=== PATIENT | female | born 1955 | race African-American/Black ===

== ENCOUNTER 2017-05-26 05:56 | Inpatient (IN) ==
[2017-05-26] MEDS ORDERED: ALBUTEROL NEB SOLN 5 MG/ML 20 ML/BOTTLE CONT NEB STA (06:01)
[2017-05-26] MEDS ORDERED: ALBUTEROL 2.5 MG/3 ML NEB RESP TX PRN ×2 (07:14→15:13)
[2017-05-26] MEDS ORDERED: DEXTROSE 50% 25 GM/50 ML VIAL IV PRN ×2 (07:49→07:52)
[2017-05-26] MEDS ORDERED: GLUCAGON 1 MG VIAL IM PRN ×2 (07:49→07:52)
[2017-05-26] MEDS ORDERED: methylPREDNISolone SOD SUC 125 MG/2 ML VIAL IV SCH (08:00)
[2017-05-26 08:29] LABS: ABG HCO3 17.1 MMOL/L (20-26); ABG Oxygen Saturation 97.5 % (95-100); ABG PCO2 34.7 MM HG (35-48); ABG PH 7.292 (7.35-7.45); ABG TCO2 15.8 MMOL/L (23-27)
[2017-05-26 08:54] LABS: Basophils % 0.1 % (0.0-0.8); Eosinophils % 0.1 % (0.00-10.9); Hematocrit 25.8 VOL% (35.7-47.0); Immature Granulocytes % 0.8 %; Immature Granulocytes Absolute 0.12 #; Lymphocytes # 0.4 10*3/uL (1.4-4.0); Lymphocytes % 2.6 % (21.3-54.2); Mean Corpuscular Hemoglobin 29 PG (27-34); Mean Corpuscular Volume 92.5 FL (87-102); Mean Platelet Volume 12.9 FL (9.6-12.0); Monocytes # 0.1 10*3/uL (0.11-0.8); Monocytes % 0.7 % (1.7-12.7); Neutrophils # 14.3 10*3/uL (1.4-7.4); Neutrophils % 95.7 % (38.7-73.9); Platelet Count 219 T/CUMM (130-400); Red Blood Count 2.79 MC/CUMM (3.8-5.5); Red Cell Distribution Width 14.6 % (9.3-17.3); White Blood Count 14.9 T/CUMM (4-12)
[2017-05-26 09:14] LABS: Hypochromasia 1+; Lymphocytes 1 % (20-55); Microcytosis Slight; Segmented Neutrophils 98 % (50-85); Total Cells Counted 100
[2017-05-26 09:15] LABS: Platelet Estimate Normal
[2017-05-26 09:24] LABS: Alanine Aminotransferase 57 U/L (13-56); Alkaline Phosphatase 142 U/L (45-117); Aspartate Amino Transferase 41 U/L (0-37); Bilirubin,Total < 0.39 MG/DL (0.2-1.0); Blood Urea Nitrogen 63 MG/DL (7-18); Calcium 8.1 MG/DL (8.5-10.1); Glucose 460 MG/DL (74-106); Magnesium 2.9 MG/DL (1.8-2.4); Phosphorous 3.2 MG/DL (2.5-4.9); Potassium 4.1 MMOL/L (3.5-5.1); Sodium 136 MMOL/L (136-145); Total Protein 6.6 G/DL (6.4-8.3)
[2017-05-26] MEDS ORDERED: methylPREDNISolone SOD SUC 125 MG/2 ML VIAL ONE (10:27)
[2017-05-26] MEDS ORDERED: INSULIN REGULAR 100 UNIT/ML ONE ×2 (10:28→17:03)
[2017-05-26] MEDS: INSULIN REGULAR 100 UNIT/ML SUBCUT SCH ×4 (10:33→21:29)
[2017-05-26] MEDS ORDERED: ALBUTEROL 2.5 MG/3 ML NEB RESP TX ONE (10:45)
[2017-05-26] MEDS ORDERED: ACETAMINOPHEN 500 MG TABLET PO PRN (15:13)
[2017-05-26] MEDS ORDERED: oxyCODONE IR 5 MG TABLET PO PRN (15:13)
[2017-05-26] MEDS ORDERED: methylPREDNISolone SOD SUC 40 MG/1 ML VIAL ONE (17:01)
[2017-05-26] MEDS ORDERED: LEVOFLOXACIN INJ 100 ML IV ONE (17:01)
[2017-05-26] MEDS: FUROSEMIDE 40 MG TABLET PO SCH (17:18)
[2017-05-26] MEDS: methylPREDNISolone SOD SUC 125 MG/2 ML VIAL IV SCH ×2 (17:20→18:57)
[2017-05-26] MEDS ORDERED: LEVOFLOXACIN INJ 500 MG in PREMIX 1 EACH IV ONE (17:30)
[2017-05-26 17:45] LABS: Apearance,Urine CLOUDY (Clear); Bacteria,Urine Occasional /HPF (Few); Bilirubin,Urine Negative (Negative); Blood, Urine Moderate mg/dL (Negative); Glucose,Urine (UA) >=500 mg/dL (Negative); Ketones,Urine Negative (Negative); Mucus,Urine Occasional /LPF (Occasional); Nitrite,Urine Negative (Negative); Protein,Urine >=500 MG/DL; RBC,Urine 16 /HPF (0-4); Squamous Epithelial Cell,Urine Occasional /HPF (0-10); Urine Color Yellow (Yellow); Urine Specific Gravity 1.013 (1.001-1.035); Urine Urobilinogen < 2.0 EU/DL (0.2-1.0); WBC,Urine 23 /HPF (0-6)
[2017-05-26 18:08] LABS: Lactic Acid 3.9 MMOL/L (0.4-2.0)
[2017-05-26] MEDS: ALBUTEROL 2.5 MG/3 ML NEB RESP TX SCH ×2 (19:18→23:56)
[2017-05-26] MEDS ORDERED: INSULIN ASPART PROTAMINE/ASPART 70/30 100 UNIT/ML SUBCUT SCH (21:00)
[2017-05-26] MEDS: clonazePAM 0.5 MG TABLET PO SCH (21:22)
[2017-05-26] MEDS: SERTRALINE 50 MG TABLET PO SCH (21:22)
[2017-05-26] MEDS: MONTELUKAST 10 MG TABLET PO SCH (21:23)
[2017-05-27] MEDS: methylPREDNISolone SOD SUC 125 MG/2 ML VIAL IV SCH ×3 (01:21→14:35)
[2017-05-27] MEDS: ALBUTEROL 2.5 MG/3 ML NEB RESP TX SCH ×5 (03:13→20:20)
[2017-05-27 07:09] LABS: Albumin 3.1 G/DL (3.4-5.0); Bilirubin,Total 0.4 MG/DL (0.2-1.0); Calcium 9.1 MG/DL (8.5-10.1); Magnesium 3.2 MG/DL (1.8-2.4); Osmolality,Calculated 299.1 MOS/KG (273-304); Potassium 4.7 MMOL/L (3.5-5.1); Total Protein 6.8 G/DL (6.4-8.3)
[2017-05-27] MEDS: INSULIN REGULAR 100 UNIT/ML SUBCUT SCH ×4 (09:04→21:55)
[2017-05-27] MEDS: INSULIN ASPART PROTAMINE/ASPART 70/30 100 UNIT/ML SUBCUT SCH ×2 (09:04→17:26)
[2017-05-27] MEDS: SERTRALINE 50 MG TABLET PO SCH ×2 (09:05→20:35)
[2017-05-27] MEDS: ASPIRIN EC 81 MG TABLET PO SCH (09:05)
[2017-05-27] MEDS: FUROSEMIDE 40 MG TABLET PO SCH ×2 (09:05→15:02)
[2017-05-27] MEDS: amLODIPine 10 MG TABLET PO SCH (09:06)
[2017-05-27] MEDS: ATORVASTATIN 40 MG TABLET PO SCH (09:06)
[2017-05-27] MEDS: clonazePAM 0.5 MG TABLET PO SCH ×2 (09:06→20:34)
[2017-05-27] MEDS: COLLAGENASE OINT 30 GM TUBE TOP SCH (14:35)
[2017-05-27] MEDS ORDERED: PHENOL 1.4% THROAT SPRAY 177 ML BOTTLE PO PRN (17:58)
[2017-05-27] MEDS: SODIUM BICARBONATE 650 MG TABLET PO SCH (20:34)
[2017-05-27] MEDS: MONTELUKAST 10 MG TABLET PO SCH (20:34)
[2017-05-27] MEDS: methylPREDNISolone SOD SUC 40 MG/1 ML VIAL IV SCH (21:21)
[2017-05-28] MEDS: ALBUTEROL 2.5 MG/3 ML NEB RESP TX SCH ×7 (00:05→23:57)
[2017-05-28] MEDS ORDERED: ALBUTEROL 2.5 MG/3 ML NEB RESP TX PRN (06:04)
[2017-05-28 06:28] LABS: Basophils % 0.1 % (0.0-0.8); Eosinophils % 0.1 % (0.00-10.9); Hematocrit 23.6 VOL% (35.7-47.0); Hemoglobin 7.5 GM/DL (12.0-16.0); Immature Granulocytes % 5.3 %; Immature Granulocytes Absolute 1.44 #; Lymphocytes # 0.7 10*3/uL (1.4-4.0); Lymphocytes % 2.5 % (21.3-54.2); Mean Corpuscular HGB Conc 31.8 GM/DL (32-36); Mean Corpuscular Hemoglobin 29 PG (27-34); Mean Corpuscular Volume 89.7 FL (87-102); Mean Platelet Volume 12.6 FL (9.6-12.0); Monocytes # 0.9 10*3/uL (0.11-0.8); Monocytes % 3.4 % (1.7-12.7); Neutrophils % 88.6 % (38.7-73.9); Platelet Count 248 T/CUMM (130-400); Red Blood Count 2.63 MC/CUMM (3.8-5.5); Red Cell Distribution Width 15.3 % (9.3-17.3); White Blood Count 27.1 T/CUMM (4-12)
[2017-05-28 06:55] LABS: Giant Platelets Few; Hypochromasia 1+; Lymphocytes 2 % (20-55); Microcytosis Slight; Ovalocytes Slight; Platelet Estimate Adequate; Segmented Neutrophils 91 % (50-85); Total Cells Counted 100
[2017-05-28] MEDS: clonazePAM 0.5 MG TABLET PO SCH ×2 (09:45→21:34)
[2017-05-28] MEDS: methylPREDNISolone SOD SUC 40 MG/1 ML VIAL IV SCH (09:47)
[2017-05-28] MEDS: INSULIN ASPART PROTAMINE/ASPART 70/30 100 UNIT/ML SUBCUT SCH ×2 (09:48→17:04)
[2017-05-28] MEDS: FUROSEMIDE 40 MG TABLET PO SCH ×2 (09:48→15:47)
[2017-05-28] MEDS ORDERED: FUROSEMIDE 40 MG/4 ML VIAL ONE (09:50)
[2017-05-28] MEDS: ASPIRIN EC 81 MG TABLET PO SCH (09:54)
[2017-05-28] MEDS: ATORVASTATIN 40 MG TABLET PO SCH (09:54)
[2017-05-28] MEDS: SODIUM BICARBONATE 650 MG TABLET PO SCH ×2 (09:54→21:34)
[2017-05-28] MEDS: amLODIPine 10 MG TABLET PO SCH (09:54)
[2017-05-28] MEDS: predniSONE 20 MG TABLET PO SCH (09:55)
[2017-05-28] MEDS: SERTRALINE 50 MG TABLET PO SCH ×2 (09:55→21:34)
[2017-05-28] MEDS: COLLAGENASE OINT 30 GM TUBE TOP SCH (09:55)
[2017-05-28] MEDS: INSULIN REGULAR 100 UNIT/ML SUBCUT SCH ×3 (09:56→17:04)
[2017-05-28] MEDS ORDERED: FUROSEMIDE 40 MG/4 ML VIAL IV ONE (10:11)
[2017-05-28] MEDS ORDERED: FUROSEMIDE 40 MG/4 ML VIAL IM ONE (10:11)
[2017-05-28] MEDS: MONTELUKAST 10 MG TABLET PO SCH (21:34)
[2017-05-28] MEDS: LEVOFLOXACIN INJ 250 MG in PREMIX 1 EACH IV SCH (21:35)
[2017-05-29] MEDS: INSULIN REGULAR 100 UNIT/ML SUBCUT SCH ×5 (00:19→21:55)
[2017-05-29] MEDS: ALBUTEROL 2.5 MG/3 ML NEB RESP TX SCH ×4 (03:37→20:20)
[2017-05-29 06:46] LABS: Basophils # 0.1 10*3/uL (0.0-0.2); Basophils % 0.2 % (0.0-0.8); Hematocrit 24.5 VOL% (35.7-47.0); Hemoglobin 7.9 GM/DL (12.0-16.0); Immature Granulocytes % 7.2 %; Lymphocytes # 1.3 10*3/uL (1.4-4.0); Lymphocytes % 4.5 % (21.3-54.2); Mean Corpuscular HGB Conc 32.2 GM/DL (32-36); Mean Corpuscular Hemoglobin 29 PG (27-34); Mean Corpuscular Volume 89.4 FL (87-102); Mean Platelet Volume 12.4 FL (9.6-12.0); Monocytes # 2.1 10*3/uL (0.11-0.8); Monocytes % 7.7 % (1.7-12.7); Neutrophils # 22.3 10*3/uL (1.4-7.4); Neutrophils % 80.4 % (38.7-73.9); Platelet Count 254 T/CUMM (130-400); Red Blood Count 2.74 MC/CUMM (3.8-5.5); Red Cell Distribution Width 15.5 % (9.3-17.3); White Blood Count 27.8 T/CUMM (4-12)
[2017-05-29 07:18] LABS: Osmolality,Calculated 307.3 MOS/KG (273-304); Potassium 4.1 MMOL/L (3.5-5.1)
[2017-05-29 07:21] LABS: Albumin 3.2 G/DL (3.4-5.0); Bilirubin,Total 0.6 MG/DL (0.2-1.0); Calcium 8.9 MG/DL (8.5-10.1); Osmolality,Calculated 308.1 MOS/KG (273-304); Phosphorous 3.4 MG/DL (2.5-4.9); Potassium 4.2 MMOL/L (3.5-5.1); Total Protein 6.5 G/DL (6.4-8.3)
[2017-05-29 07:23] LABS: Hypochromasia 1+; Lymphocytes 11 % (20-55); Myelocytes 5 %; Platelet Estimate Adequate; Polychromasia Slight; Segmented Neutrophils 79 % (50-85); Total Cells Counted 100
[2017-05-29] MEDS: INSULIN ASPART PROTAMINE/ASPART 70/30 100 UNIT/ML SUBCUT SCH ×2 (07:35→18:57)
[2017-05-29] MEDS ORDERED: CLINDAMYCIN INJ 900 MG in PREMIX 1 EACH IV ONE (10:00)
[2017-05-29] MEDS: clonazePAM 0.5 MG TABLET PO SCH ×2 (11:59→20:49)
[2017-05-29] MEDS: ASPIRIN EC 81 MG TABLET PO SCH (11:59)
[2017-05-29] MEDS: FUROSEMIDE 40 MG TABLET PO SCH ×2 (11:59→16:39)
[2017-05-29] MEDS: SODIUM BICARBONATE 650 MG TABLET PO SCH ×2 (12:00→20:49)
[2017-05-29] MEDS: predniSONE 20 MG TABLET PO SCH (12:00)
[2017-05-29] MEDS: ATORVASTATIN 40 MG TABLET PO SCH (12:00)
[2017-05-29] MEDS: SERTRALINE 50 MG TABLET PO SCH ×2 (12:00→20:49)
[2017-05-29] MEDS: COLLAGENASE OINT 30 GM TUBE TOP SCH (12:00)
[2017-05-29] MEDS: amLODIPine 10 MG TABLET PO SCH (12:46)
[2017-05-29 13:02] LABS: Hepatitis A Ab IgM Quant 0.14 Index; Hepatitis A Ab IgM Result Negative (Negative); Hepatitis B Core IgM Result Negative (Negative); Hepatitis B Surface Ag Quant 0.26 Index; Hepatitis B Surface Ag Result Negative (Negative); Hepatitis C Virus Ab Quant < 0.02 Index; Hepatitis C Virus Ab Result Negative (Negative)
[2017-05-29] MEDS ORDERED: TISSUE ADHESIVE 1 EACH APPLICATOR TOP ONE (14:52)
[2017-05-29] MEDS ORDERED: HEPARIN 5,000 UNIT/1 ML VIAL ONE (14:52)
[2017-05-29] MEDS ORDERED: PROPOFOL 200 MG/20 ML VIAL IV ONE (16:36)
[2017-05-29] MEDS ORDERED: MIDAZOLAM 2 MG/2 ML VIAL ONE (16:37)
[2017-05-29] MEDS ORDERED: fentaNYL 100 MCG/2 ML VIAL ONE (16:37)
[2017-05-29] MEDS ORDERED: ALBUTEROL 2.5 MG/3 ML NEB RESP TX ONE (19:47)
[2017-05-29] MEDS: MONTELUKAST 10 MG TABLET PO SCH (20:49)
[2017-05-30] MEDS: ALBUTEROL 2.5 MG/3 ML NEB RESP TX SCH ×8 (00:01→23:23)
[2017-05-30 06:03] LABS: Basophils % 0.2 % (0.0-0.8); Eosinophils # 0.3 10*3/uL (0.0-0.87); Eosinophils % 1.8 % (0.00-10.9); Hemoglobin 7.6 GM/DL (12.0-16.0); Immature Granulocytes Absolute 0.97 #; Lymphocytes # 2.1 10*3/uL (1.4-4.0); Lymphocytes % 12.7 % (21.3-54.2); Mean Corpuscular HGB Conc 31.7 GM/DL (32-36); Mean Corpuscular Hemoglobin 29 PG (27-34); Mean Corpuscular Volume 90.6 FL (87-102); Mean Platelet Volume 11.5 FL (9.6-12.0); Monocytes # 1.6 10*3/uL (0.11-0.8); Monocytes % 9.6 % (1.7-12.7); NRBC # 0.02 10*3/uL; Neutrophils # 11.2 10*3/uL (1.4-7.4); Neutrophils % 69.7 % (38.7-73.9); Platelet Count 242 T/CUMM (130-400); Red Blood Count 2.65 MC/CUMM (3.8-5.5); Red Cell Distribution Width 15.8 % (9.3-17.3); White Blood Count 16.1 T/CUMM (4-12)
[2017-05-30 06:34] LABS: Albumin 2.8 G/DL (3.4-5.0); Bilirubin,Total 0.8 MG/DL (0.2-1.0); Magnesium 2.7 MG/DL (1.8-2.4); Phosphorous 3.6 MG/DL (2.5-4.9); Potassium 4.7 MMOL/L (3.5-5.1)
[2017-05-30 06:37] LABS: Hypochromasia 1+; Lymphocytes 18 % (20-55); Metamyelocytes 1 %; Microcytosis 1+; Myelocytes 1 %; Segmented Neutrophils 75 % (50-85); Total Cells Counted 100
[2017-05-30 06:38] LABS: Platelet Estimate Normal
[2017-05-30] MEDS ORDERED: HEPARIN 10,000 UNIT/10 ML VIAL IV SCH (07:30)
[2017-05-30] MEDS: FUROSEMIDE 40 MG TABLET PO SCH ×2 (09:21→15:47)
[2017-05-30] MEDS: ATORVASTATIN 40 MG TABLET PO SCH (09:21)
[2017-05-30] MEDS: ASPIRIN EC 81 MG TABLET PO SCH (09:21)
[2017-05-30] MEDS: clonazePAM 0.5 MG TABLET PO SCH ×2 (09:21→21:17)
[2017-05-30] MEDS: amLODIPine 10 MG TABLET PO SCH (09:22)
[2017-05-30] MEDS: predniSONE 20 MG TABLET PO SCH (09:22)
[2017-05-30] MEDS: SERTRALINE 50 MG TABLET PO SCH ×2 (09:22→21:17)
[2017-05-30] MEDS: SODIUM BICARBONATE 650 MG TABLET PO SCH ×2 (09:22→21:17)
[2017-05-30] MEDS: INSULIN REGULAR 100 UNIT/ML SUBCUT SCH ×4 (09:25→21:17)
[2017-05-30] MEDS ORDERED: EPOETIN ALFA 10,000 UNIT/1 ML VIAL IV SCH (12:30)
[2017-05-30] MEDS: COLLAGENASE OINT 30 GM TUBE TOP SCH (15:43)
[2017-05-30] MEDS: MONTELUKAST 10 MG TABLET PO SCH (21:17)
[2017-05-30] MEDS: LEVOFLOXACIN INJ 250 MG in PREMIX 1 EACH IV SCH (21:17)
[2017-05-31] MEDS: ALBUTEROL 2.5 MG/3 ML NEB RESP TX SCH ×6 (02:23→23:01)
[2017-05-31] MEDS: COLLAGENASE OINT 30 GM TUBE TOP SCH (07:55)
[2017-05-31] MEDS: FUROSEMIDE 40 MG TABLET PO SCH ×2 (08:08→16:07)
[2017-05-31] MEDS: INSULIN REGULAR 100 UNIT/ML SUBCUT SCH ×4 (08:21→22:09)
[2017-05-31] MEDS: SODIUM BICARBONATE 650 MG TABLET PO SCH ×2 (08:22→22:12)
[2017-05-31] MEDS: amLODIPine 10 MG TABLET PO SCH (08:22)
[2017-05-31] MEDS: clonazePAM 0.5 MG TABLET PO SCH ×2 (08:22→22:09)
[2017-05-31] MEDS: predniSONE 20 MG TABLET PO SCH (08:23)
[2017-05-31] MEDS: LISINOPRIL 10 MG TABLET PO SCH (08:23)
[2017-05-31] MEDS: SERTRALINE 50 MG TABLET PO SCH ×2 (08:23→22:12)
[2017-05-31] MEDS: ATORVASTATIN 40 MG TABLET PO SCH (08:23)
[2017-05-31] MEDS: ASPIRIN EC 81 MG TABLET PO SCH (08:23)
[2017-05-31] MEDS: MONTELUKAST 10 MG TABLET PO SCH (22:09)
[2017-06-01] MEDS: ALBUTEROL 2.5 MG/3 ML NEB RESP TX SCH ×5 (02:35→19:59)
[2017-06-01] MEDS: COLLAGENASE OINT 30 GM TUBE TOP SCH (07:20)
[2017-06-01] MEDS: FUROSEMIDE 40 MG TABLET PO SCH ×2 (08:40→16:25)
[2017-06-01] MEDS: clonazePAM 0.5 MG TABLET PO SCH ×2 (08:41→21:41)
[2017-06-01] MEDS: SODIUM BICARBONATE 650 MG TABLET PO SCH ×2 (08:41→21:40)
[2017-06-01] MEDS: predniSONE 20 MG TABLET PO SCH (08:41)
[2017-06-01] MEDS: ATORVASTATIN 40 MG TABLET PO SCH (08:41)
[2017-06-01] MEDS: SERTRALINE 50 MG TABLET PO SCH ×2 (08:41→21:41)
[2017-06-01] MEDS: ASPIRIN EC 81 MG TABLET PO SCH (08:41)
[2017-06-01] MEDS: LISINOPRIL 10 MG TABLET PO SCH (08:41)
[2017-06-01] MEDS: amLODIPine 10 MG TABLET PO SCH (08:42)
[2017-06-01] MEDS: INSULIN NPH/REGULAR 70/30 100 UNIT/ML SUBCUT SCH ×2 (08:55→16:58)
[2017-06-01] MEDS: INSULIN REGULAR 100 UNIT/ML SUBCUT SCH ×4 (08:55→21:41)
[2017-06-01] MEDS: MONTELUKAST 10 MG TABLET PO SCH (21:41)
[2017-06-01] MEDS: LEVOFLOXACIN INJ 250 MG in PREMIX 1 EACH IV SCH (21:45)
[2017-06-02] MEDS: ALBUTEROL 2.5 MG/3 ML NEB RESP TX SCH ×4 (01:08→11:19)
[2017-06-02] MEDS: INSULIN NPH/REGULAR 70/30 100 UNIT/ML SUBCUT SCH ×2 (08:09→17:51)
[2017-06-02] MEDS: SODIUM BICARBONATE 650 MG TABLET PO SCH (08:09)
[2017-06-02] MEDS: ATORVASTATIN 40 MG TABLET PO SCH (08:10)
[2017-06-02] MEDS: clonazePAM 0.5 MG TABLET PO SCH (08:10)
[2017-06-02] MEDS: predniSONE 20 MG TABLET PO SCH (08:10)
[2017-06-02] MEDS: amLODIPine 10 MG TABLET PO SCH (08:10)
[2017-06-02] MEDS: SERTRALINE 50 MG TABLET PO SCH (08:10)
[2017-06-02] MEDS: ASPIRIN EC 81 MG TABLET PO SCH (08:10)
[2017-06-02] MEDS: FUROSEMIDE 40 MG TABLET PO SCH ×2 (08:11→16:25)
[2017-06-02] MEDS: LISINOPRIL 10 MG TABLET PO SCH (08:11)
[2017-06-02] MEDS: COLLAGENASE OINT 30 GM TUBE TOP SCH (08:14)
[2017-06-02 09:09] LABS: Calcium 8.3 MG/DL (8.5-10.1); Osmolality,Calculated 298.1 MOS/KG (273-304); Potassium 4.1 MMOL/L (3.5-5.1)
[2017-06-02 12:22] VITALS: BP 148/68
[2017-06-02] MEDS: INSULIN REGULAR 100 UNIT/ML SUBCUT SCH ×3 (12:40→17:51)
== END 2017-06-02 16:20 | disposition home or self-care (01) | DRG 871 ==
LOC: EDBD → EDUNIT# → N.ED 05:56 → SUATTDRO 06:46 → N.EDINP 06:46 → N.2E 18:47
PROVIDERS: ADMIT Internal Medicine; ATTEND Internal Medicine

== ENCOUNTER 2017-07-23 12:40 | Inpatient (IN) ==
[2017-07-23] MEDS ORDERED: ONDANSETRON 4 MG/2 ML VIAL IV PRN (15:30)
[2017-07-23] MEDS ORDERED: DEXTROSE 50% 25 GM/50 ML VIAL IV PRN (15:32)
[2017-07-23] MEDS ORDERED: GLUCAGON 1 MG VIAL IM PRN (15:32)
[2017-07-23 16:14] LABS: Basophils % 0.2 % (0.0-0.8); Eosinophils # 0.7 10*3/uL (0.0-0.87); Eosinophils % 7.6 % (0.00-10.9); Hematocrit 28.1 VOL% (35.7-47.0); Immature Granulocytes % 0.3 %; Immature Granulocytes Absolute 0.03 #; Lymphocytes # 1.6 10*3/uL (1.4-4.0); Lymphocytes % 17.8 % (21.3-54.2); Mean Corpuscular Hemoglobin 29 PG (27-34); Mean Corpuscular Volume 91.8 FL (87-102); Mean Platelet Volume 12.4 FL (9.6-12.0); Monocytes # 0.6 10*3/uL (0.11-0.8); Monocytes % 6.8 % (1.7-12.7); Neutrophils # 5.9 10*3/uL (1.4-7.4); Neutrophils % 67.3 % (38.7-73.9); Platelet Count 203 T/CUMM (130-400); Red Blood Count 3.06 MC/CUMM (3.8-5.5); White Blood Count 8.8 T/CUMM (4-12)
[2017-07-23 16:51] LABS: Osmolality,Calculated 277.7 MOS/KG (273-304); Potassium 3.9 MMOL/L (3.5-5.1)
[2017-07-23] MEDS: INSULIN REGULAR 100 UNIT/ML SUBCUT SCH (18:04)
[2017-07-23] MEDS: amLODIPine 10 MG TABLET PO SCH (21:33)
[2017-07-23] MEDS: PANTOPRAZOLE 40 MG VIAL IV SCH (21:38)
[2017-07-24] MEDS: INSULIN REGULAR 100 UNIT/ML SUBCUT SCH ×3 (01:41→12:07)
[2017-07-24] MEDS ORDERED: LINACLOTIDE 145 MCG CAPSULE PO SCH (07:30)
[2017-07-24] MEDS ORDERED: PROPOFOL 200 MG/20 ML VIAL IV ONE (09:00)
[2017-07-24] MEDS ORDERED: ISOSORBIDE MONONITRATE 60 MG TABLET PO SCH (09:00)
[2017-07-24] MEDS ORDERED: PANTOPRAZOLE 40 MG TABLET PO SCH ×2 (09:00→10:00)
[2017-07-24] MEDS ORDERED: LIDOCAINE 100 MG/5 ML SYRINGE ONE (09:00)
[2017-07-24] MEDS: PANTOPRAZOLE 40 MG VIAL IV SCH (09:28)
[2017-07-24] MEDS: SODIUM CHLORIDE 0.9% 1,000 ML IV SCH ×2 (10:06→10:43)
[2017-07-24] MEDS: amLODIPine 10 MG TABLET PO SCH (10:07)
[2017-07-24 10:46] LABS: Osmolality,Calculated 284.3 MOS/KG (273-304); Potassium 3.8 MMOL/L (3.5-5.1)
[2017-07-24 12:24] VITALS: BP 128/68
[2017-07-24] MEDS ORDERED: ACETAMINOPHEN 500 MG TABLET PO PRN (14:04)
== END 2017-07-24 17:42 | disposition home or self-care (01) | DRG 377 ==
LOC: N.2E 13:54 → SUATTDRO 13:54
PROVIDERS: ADMIT Internal Medicine

== ENCOUNTER 2017-08-13 03:27 | Inpatient (IN) ==
[2017-08-13] MEDS ORDERED: oxyCODONE IR 5 MG TABLET PO PRN (06:12)
[2017-08-13] MEDS ORDERED: ALBUTEROL 2.5 MG/3 ML NEB RESP TX PRN ×2 (06:12)
[2017-08-13] MEDS ORDERED: DEXTROSE 50% 25 GM/50 ML VIAL IV PRN (06:13)
[2017-08-13] MEDS ORDERED: GLUCAGON 1 MG VIAL IM PRN (06:13)
[2017-08-13] MEDS: ACETAMINOPHEN 325 MG TABLET PO PRN (07:14)
[2017-08-13] MEDS: INSULIN REGULAR 100 UNIT/ML SUBCUT SCH ×4 (08:00→20:59)
[2017-08-13 08:07] LABS: Basophils % 0.2 % (0.0-0.8); Eosinophils % 0.2 % (0.00-10.9); Hematocrit 24.4 VOL% (35.7-47.0); Immature Granulocytes % 0.8 %; Immature Granulocytes Absolute 0.15 #; Lymphocytes # 0.3 10*3/uL (1.4-4.0); Lymphocytes % 1.3 % (21.3-54.2); Mean Corpuscular HGB Conc 32.4 GM/DL (32-36); Mean Corpuscular Hemoglobin 30 PG (27-34); Mean Corpuscular Volume 91.7 FL (87-102); Mean Platelet Volume 11.3 FL (9.6-12.0); Monocytes # 0.5 10*3/uL (0.11-0.8); Monocytes % 2.6 % (1.7-12.7); Neutrophils # 17.9 10*3/uL (1.4-7.4); Neutrophils % 94.9 % (38.7-73.9); Platelet Count 234 T/CUMM (130-400); Red Blood Count 2.66 MC/CUMM (3.8-5.5); Red Cell Distribution Width 14.6 % (9.3-17.3); White Blood Count 18.9 T/CUMM (4-12)
[2017-08-13] MEDS ORDERED: METOPROLOL TARTRATE 5 MG/5 ML VIAL IV ONE (08:14)
[2017-08-13 08:15] LABS: Hemoglobin 7.9 GM/DL (12.0-16.0)
[2017-08-13 08:26] LABS: Band Neutrophils 6 % (0-10); Calcium 8.9 MG/DL (8.5-10.1); Giant Platelets Few; Hypochromasia 1+; Lymphocytes 1 % (20-55); Osmolality,Calculated 291.8 MOS/KG (273-304); Ovalocytes Slight; Platelet Estimate Adequate; Potassium 4.3 MMOL/L (3.5-5.1); Segmented Neutrophils 92 % (50-85); Total Cells Counted 100
[2017-08-13 08:27] LABS: Microcytosis Slight
[2017-08-13] MEDS ORDERED: SODIUM CHLORIDE 0.9% 500 ML IV ONE (08:33)
[2017-08-13] MEDS ORDERED: VANCOMYCIN INJ 1,000 MG in SODIUM CHLORIDE 0.9% 250 ML IV PRN (09:06)
[2017-08-13] MEDS ORDERED: SODIUM CHLORIDE 0.9% 1,000 ML IV PRN (09:09)
[2017-08-13 09:17] LABS: Apearance,Urine CLOUDY (Clear); Bacteria,Urine Occasional /HPF (Few); Bilirubin,Urine Negative (Negative); Blood, Urine Moderate mg/dL (Negative); Glucose,Urine (UA) Negative (Negative); Ketones,Urine Negative (Negative); Mucus,Urine Occasional /LPF (Occasional); Nitrite,Urine Negative (Negative); Protein,Urine 100 MG/DL; RBC,Urine 15 /HPF (0-4); Squamous Epithelial Cell,Urine Occasional /HPF (0-10); Urine Color Straw (Yellow); Urine Specific Gravity 1.008 (1.001-1.035); Urine Urobilinogen < 2.0 EU/DL (0.2-1.0); WBC,Urine 6 /HPF (0-6)
[2017-08-13] MEDS ORDERED: VANCOMYCIN INJ 2,000 MG in SODIUM CHLORIDE 0.9% 500 ML IV ONE (09:30)
[2017-08-13] MEDS: amLODIPine 10 MG TABLET PO SCH ×2 (10:00→21:11)
[2017-08-13] MEDS: ISOSORBIDE MONONITRATE 60 MG TABLET PO SCH (10:00)
[2017-08-13] MEDS: PANTOPRAZOLE 40 MG TABLET PO SCH (10:00)
[2017-08-13] MEDS: PIPERACILLIN/TAZOBACTAM 3,375 MG in SODIUM CHLORIDE 0.9% 100 ML IV SCH ×2 (10:00→21:11)
[2017-08-13] MEDS: ONDANSETRON 4 MG/2 ML VIAL IV PRN ×2 (10:54→17:40)
[2017-08-13] MEDS: SODIUM BICARBONATE 650 MG TABLET PO SCH ×2 (15:08→21:11)
[2017-08-14] MEDS: ACETAMINOPHEN 325 MG TABLET PO PRN ×3 (04:34→17:36)
[2017-08-14] MEDS ORDERED: METOPROLOL TARTRATE 5 MG/5 ML VIAL IV ONE ×2 (05:28→06:00)
[2017-08-14 06:40] LABS: Basophils # 0.1 10*3/uL (0.0-0.2); Basophils % 0.2 % (0.0-0.8); Eosinophils # 0.3 10*3/uL (0.0-0.87); Eosinophils % 1.1 % (0.00-10.9); Hematocrit 24.8 VOL% (35.7-47.0); Hemoglobin 7.8 GM/DL (12.0-16.0); Immature Granulocytes Absolute 0.21 #; Lymphocytes # 0.6 10*3/uL (1.4-4.0); Lymphocytes % 2.9 % (21.3-54.2); Mean Corpuscular HGB Conc 31.5 GM/DL (32-36); Mean Corpuscular Hemoglobin 29 PG (27-34); Mean Corpuscular Volume 91.9 FL (87-102); Mean Platelet Volume 11.6 FL (9.6-12.0); Monocytes # 0.8 10*3/uL (0.11-0.8); Monocytes % 3.8 % (1.7-12.7); Neutrophils # 19.9 10*3/uL (1.4-7.4); Platelet Count 195 T/CUMM (130-400); White Blood Count 21.9 T/CUMM (4-12)
[2017-08-14 07:02] LABS: Band Neutrophils 5 % (0-10); Eosinophils 1 % (0-10); Hypochromasia 1+; Lymphocytes 1 % (20-55); Microcytosis 1+; Platelet Estimate Adequate; Segmented Neutrophils 92 % (50-85); Total Cells Counted 100
[2017-08-14 07:28] LABS: Albumin 2.7 G/DL (3.4-5.0); Bilirubin,Total 0.6 MG/DL (0.2-1.0); Calcium 8.3 MG/DL (8.5-10.1); Potassium 4.9 MMOL/L (3.5-5.1); Total Protein 6.1 G/DL (6.4-8.3)
[2017-08-14] MEDS: INSULIN REGULAR 100 UNIT/ML SUBCUT SCH ×4 (07:50→20:48)
[2017-08-14] MEDS ORDERED: VANCOMYCIN INJ 2,000 MG in SODIUM CHLORIDE 0.9% 500 ML IV ONE (09:30)
[2017-08-14] MEDS: SODIUM BICARBONATE 650 MG TABLET PO SCH ×3 (09:45→20:55)
[2017-08-14] MEDS: FUROSEMIDE 80 MG TABLET PO SCH (09:46)
[2017-08-14] MEDS: amLODIPine 10 MG TABLET PO SCH ×2 (09:46→20:55)
[2017-08-14] MEDS: PIPERACILLIN/TAZOBACTAM 3,375 MG in SODIUM CHLORIDE 0.9% 100 ML IV SCH (09:46)
[2017-08-14] MEDS: ISOSORBIDE MONONITRATE 60 MG TABLET PO SCH (09:46)
[2017-08-14] MEDS: PANTOPRAZOLE 40 MG TABLET PO SCH (09:46)
[2017-08-14] MEDS ORDERED: SODIUM CHLORIDE 0.9% 1,000 ML IV PRN (10:24)
[2017-08-14] MEDS ORDERED: HEPARIN 10,000 UNIT/10 ML VIAL IV PRN (17:25)
[2017-08-14 19:01] LABS: Hepatitis A Ab IgM Quant 0.07 Index; Hepatitis A Ab IgM Result Negative (Negative); Hepatitis B Core IgM Quant 0.16 Index; Hepatitis B Core IgM Result Negative (Negative); Hepatitis B Surface Ag Quant < 0.10 Index; Hepatitis B Surface Ag Result Negative (Negative); Hepatitis C Virus Ab Quant 0.07 Index; Hepatitis C Virus Ab Result Negative (Negative)
[2017-08-14] MEDS: METOPROLOL TARTRATE 25 MG TABLET PO SCH (20:55)
[2017-08-14] MEDS: ONDANSETRON 4 MG/2 ML VIAL IV PRN (22:10)
[2017-08-15] MEDS: ACETAMINOPHEN 325 MG TABLET PO PRN (02:13)
[2017-08-15 06:29] LABS: Basophils % 0.2 % (0.0-0.8); Eosinophils # 0.6 10*3/uL (0.0-0.87); Eosinophils % 3.3 % (0.00-10.9); Hematocrit 26.8 VOL% (35.7-47.0); Hemoglobin 8.9 GM/DL (12.0-16.0); Immature Granulocytes % 0.8 %; Immature Granulocytes Absolute 0.13 #; Lymphocytes # 1.4 10*3/uL (1.4-4.0); Lymphocytes % 8.2 % (21.3-54.2); Mean Corpuscular HGB Conc 33.2 GM/DL (32-36); Mean Corpuscular Hemoglobin 30 PG (27-34); Mean Corpuscular Volume 88.7 FL (87-102); Mean Platelet Volume 12.1 FL (9.6-12.0); Monocytes # 1.1 10*3/uL (0.11-0.8); Monocytes % 6.5 % (1.7-12.7); Neutrophils # 13.6 10*3/uL (1.4-7.4); Platelet Count 182 T/CUMM (130-400); Red Blood Count 3.02 MC/CUMM (3.8-5.5); White Blood Count 16.7 T/CUMM (4-12)
[2017-08-15 06:56] LABS: Calcium 8.4 MG/DL (8.5-10.1); Osmolality,Calculated 280.4 MOS/KG (273-304); Potassium 3.7 MMOL/L (3.5-5.1)
[2017-08-15] MEDS: INSULIN REGULAR 100 UNIT/ML SUBCUT SCH ×4 (07:33→20:42)
[2017-08-15] MEDS: ISOSORBIDE MONONITRATE 60 MG TABLET PO SCH (08:52)
[2017-08-15] MEDS: METOPROLOL TARTRATE 25 MG TABLET PO SCH ×2 (08:52→20:37)
[2017-08-15] MEDS: PANTOPRAZOLE 40 MG TABLET PO SCH (08:52)
[2017-08-15] MEDS: amLODIPine 10 MG TABLET PO SCH ×2 (08:52→20:37)
[2017-08-15] MEDS: FUROSEMIDE 80 MG TABLET PO SCH (08:52)
[2017-08-15] MEDS: SODIUM BICARBONATE 650 MG TABLET PO SCH ×3 (08:57→20:37)
[2017-08-15] MEDS: ZINC OXIDE PASTE 113 GM TUBE TOP PRN (09:00)
[2017-08-15] MEDS ORDERED: VANCOMYCIN INJ 1,000 MG in SODIUM CHLORIDE 0.9% 250 ML IV PRN (11:00)
[2017-08-15] MEDS ORDERED: VANCOMYCIN INJ 1,000 MG in SODIUM CHLORIDE 0.9% 250 ML IV ONE (12:00)
[2017-08-15] MEDS ORDERED: fentaNYL 100 MCG/2 ML VIAL ONE (12:06)
[2017-08-15] MEDS ORDERED: PROPOFOL 200 MG/20 ML VIAL IV ONE (12:06)
[2017-08-16 05:19] LABS: Basophils % 0.3 % (0.0-0.8); Eosinophils # 0.5 10*3/uL (0.0-0.87); Eosinophils % 4.2 % (0.00-10.9); Hematocrit 27.7 VOL% (35.7-47.0); Hemoglobin 9.3 GM/DL (12.0-16.0); Immature Granulocytes % 0.7 %; Immature Granulocytes Absolute 0.09 #; Lymphocytes # 1.6 10*3/uL (1.4-4.0); Lymphocytes % 12.8 % (21.3-54.2); Mean Corpuscular HGB Conc 33.6 GM/DL (32-36); Mean Corpuscular Hemoglobin 30 PG (27-34); Mean Corpuscular Volume 88.8 FL (87-102); Mean Platelet Volume 12.5 FL (9.6-12.0); Monocytes # 0.9 10*3/uL (0.11-0.8); Monocytes % 7.5 % (1.7-12.7); Neutrophils # 9.3 10*3/uL (1.4-7.4); Neutrophils % 74.5 % (38.7-73.9); Platelet Count 182 T/CUMM (130-400); Red Blood Count 3.12 MC/CUMM (3.8-5.5); Red Cell Distribution Width 14.5 % (9.3-17.3); White Blood Count 12.5 T/CUMM (4-12)
[2017-08-16] MEDS: INSULIN REGULAR 100 UNIT/ML SUBCUT SCH ×4 (08:22→21:00)
[2017-08-16] MEDS: ISOSORBIDE MONONITRATE 60 MG TABLET PO SCH (08:24)
[2017-08-16] MEDS: FUROSEMIDE 80 MG TABLET PO SCH (08:24)
[2017-08-16] MEDS: amLODIPine 10 MG TABLET PO SCH ×2 (08:24→21:45)
[2017-08-16] MEDS: SODIUM BICARBONATE 650 MG TABLET PO SCH ×3 (08:24→21:45)
[2017-08-16] MEDS: PANTOPRAZOLE 40 MG TABLET PO SCH (08:25)
[2017-08-16] MEDS: METOPROLOL TARTRATE 25 MG TABLET PO SCH ×2 (08:25→21:46)
[2017-08-16] MEDS: ACETAMINOPHEN 325 MG TABLET PO PRN (09:39)
[2017-08-16] MEDS: ZINC OXIDE PASTE 113 GM TUBE TOP PRN (09:55)
[2017-08-17 05:18] LABS: Basophils % 0.4 % (0.0-0.8); Eosinophils # 0.6 10*3/uL (0.0-0.87); Eosinophils % 6.2 % (0.00-10.9); Hematocrit 30.5 VOL% (35.7-47.0); Hemoglobin 10.1 GM/DL (12.0-16.0); Lymphocytes # 1.9 10*3/uL (1.4-4.0); Mean Corpuscular HGB Conc 33.1 GM/DL (32-36); Mean Corpuscular Hemoglobin 29 PG (27-34); Mean Corpuscular Volume 88.2 FL (87-102); Mean Platelet Volume 12.2 FL (9.6-12.0); Monocytes # 0.8 10*3/uL (0.11-0.8); Monocytes % 8.5 % (1.7-12.7); Neutrophils # 6.4 10*3/uL (1.4-7.4); Neutrophils % 64.9 % (38.7-73.9); Platelet Count 199 T/CUMM (130-400); Red Blood Count 3.46 MC/CUMM (3.8-5.5); Red Cell Distribution Width 14.1 % (9.3-17.3); White Blood Count 9.8 T/CUMM (4-12)
[2017-08-17] MEDS: INSULIN REGULAR 100 UNIT/ML SUBCUT SCH ×4 (08:49→20:15)
[2017-08-17] MEDS: SODIUM BICARBONATE 650 MG TABLET PO SCH ×3 (08:57→21:15)
[2017-08-17] MEDS: METOPROLOL TARTRATE 25 MG TABLET PO SCH ×2 (08:58→21:15)
[2017-08-17] MEDS: PANTOPRAZOLE 40 MG TABLET PO SCH (08:58)
[2017-08-17] MEDS: FUROSEMIDE 80 MG TABLET PO SCH ×2 (08:58→15:32)
[2017-08-17] MEDS: ISOSORBIDE MONONITRATE 60 MG TABLET PO SCH (08:58)
[2017-08-17] MEDS: amLODIPine 10 MG TABLET PO SCH ×2 (08:59→21:15)
[2017-08-17 11:43] LABS: Calcium 8.2 MG/DL (8.5-10.1); Osmolality,Calculated 285.4 MOS/KG (273-304); Potassium 4.1 MMOL/L (3.5-5.1)
[2017-08-17] MEDS: DICLOFENAC 1% GEL 100 GM TUBE TOP SCH ×2 (15:33→21:16)
[2017-08-17] MEDS ORDERED: VANCOMYCIN INJ 1,000 MG in SODIUM CHLORIDE 0.9% 250 ML IV ONE (18:00)
[2017-08-18 05:36] LABS: Basophils % 0.4 % (0.0-0.8); Eosinophils # 0.7 10*3/uL (0.0-0.87); Eosinophils % 6.9 % (0.00-10.9); Hematocrit 32.5 VOL% (35.7-47.0); Hemoglobin 10.8 GM/DL (12.0-16.0); Immature Granulocytes % 1.4 %; Immature Granulocytes Absolute 0.15 #; Lymphocytes # 2.2 10*3/uL (1.4-4.0); Lymphocytes % 20.8 % (21.3-54.2); Mean Corpuscular HGB Conc 33.2 GM/DL (32-36); Mean Corpuscular Hemoglobin 29 PG (27-34); Mean Corpuscular Volume 87.4 FL (87-102); Mean Platelet Volume 11.9 FL (9.6-12.0); Monocytes # 0.9 10*3/uL (0.11-0.8); Monocytes % 8.8 % (1.7-12.7); Neutrophils # 6.5 10*3/uL (1.4-7.4); Neutrophils % 61.7 % (38.7-73.9); Platelet Count 226 T/CUMM (130-400); Red Blood Count 3.72 MC/CUMM (3.8-5.5); Red Cell Distribution Width 13.8 % (9.3-17.3); White Blood Count 10.5 T/CUMM (4-12)
[2017-08-18 05:42] LABS: Calcium 8.8 MG/DL (8.5-10.1); Osmolality,Calculated 284.4 MOS/KG (273-304); Potassium 4.2 MMOL/L (3.5-5.1)
[2017-08-18 05:43] LABS: Osmolality,Calculated 284.4 MOS/KG (273-304); Potassium 4.3 MMOL/L (3.5-5.1)
[2017-08-18] MEDS: INSULIN REGULAR 100 UNIT/ML SUBCUT SCH ×4 (08:42→22:51)
[2017-08-18] MEDS: ISOSORBIDE MONONITRATE 60 MG TABLET PO SCH (08:44)
[2017-08-18] MEDS: FUROSEMIDE 80 MG TABLET PO SCH ×2 (08:44→15:09)
[2017-08-18] MEDS: PANTOPRAZOLE 40 MG TABLET PO SCH (08:44)
[2017-08-18] MEDS: METOPROLOL TARTRATE 25 MG TABLET PO SCH ×2 (08:44→22:47)
[2017-08-18] MEDS: DICLOFENAC 1% GEL 100 GM TUBE TOP SCH ×3 (08:45→22:51)
[2017-08-18] MEDS: SODIUM BICARBONATE 650 MG TABLET PO SCH ×3 (08:48→22:46)
[2017-08-18] MEDS: amLODIPine 10 MG TABLET PO SCH ×2 (08:49→22:46)
[2017-08-19] MEDS: INSULIN REGULAR 100 UNIT/ML SUBCUT SCH ×4 (08:32→21:34)
[2017-08-19] MEDS: DICLOFENAC 1% GEL 100 GM TUBE TOP SCH ×3 (08:32→21:34)
[2017-08-19] MEDS: METOPROLOL TARTRATE 25 MG TABLET PO SCH ×2 (08:32→21:30)
[2017-08-19] MEDS: FUROSEMIDE 80 MG TABLET PO SCH ×2 (08:32→15:05)
[2017-08-19] MEDS: PANTOPRAZOLE 40 MG TABLET PO SCH (08:32)
[2017-08-19] MEDS: amLODIPine 10 MG TABLET PO SCH ×2 (08:32→21:30)
[2017-08-19] MEDS: ISOSORBIDE MONONITRATE 60 MG TABLET PO SCH (08:32)
[2017-08-19] MEDS: SODIUM BICARBONATE 650 MG TABLET PO SCH ×3 (08:32→21:30)
[2017-08-20 05:36] LABS: Calcium 8.4 MG/DL (8.5-10.1); Osmolality,Calculated 282.5 MOS/KG (273-304); Potassium 4.1 MMOL/L (3.5-5.1)
[2017-08-20] MEDS: INSULIN REGULAR 100 UNIT/ML SUBCUT SCH ×2 (08:34→12:27)
[2017-08-20] MEDS: PANTOPRAZOLE 40 MG TABLET PO SCH (08:36)
[2017-08-20] MEDS: FUROSEMIDE 80 MG TABLET PO SCH (08:37)
[2017-08-20] MEDS: SODIUM BICARBONATE 650 MG TABLET PO SCH (08:37)
[2017-08-20] MEDS: ISOSORBIDE MONONITRATE 60 MG TABLET PO SCH (08:37)
[2017-08-20] MEDS: METOPROLOL TARTRATE 25 MG TABLET PO SCH (08:37)
[2017-08-20] MEDS: amLODIPine 10 MG TABLET PO SCH (08:37)
[2017-08-20 11:30] VITALS: BP 131/66
[2017-08-20] MEDS: DICLOFENAC 1% GEL 100 GM TUBE TOP SCH (12:27)
[2017-08-20] MEDS ORDERED: LACTOBACILLUS RHAMNOSUS GG CAPSULE PO SCH (12:30)
[2017-08-20] MEDS ORDERED: DIPHENOXYLATE/ATROPINE 2.5-0.025 MG TABLET PO PRN (12:31)
[2017-08-20] MEDS ORDERED: VANCOMYCIN INJ 1,250 MG in SODIUM CHLORIDE 0.9% 250 ML IV SCH (18:00)
== END 2017-08-20 12:48 | disposition home health service (06) | DRG 314 ==
LOC: N.ICU 05:13 → SUATTDRO 05:13 → N.TELEN 08-15 15:30
PROVIDERS: ADMIT Internal Medicine; ATTEND Internal Medicine Cardiovascular Disease

== ENCOUNTER 2017-08-29 14:43 | Inpatient (IN) ==
[2017-08-29] MEDS ORDERED: ONDANSETRON 4 MG/2 ML VIAL IV STA (15:56)
[2017-08-29] MEDS ORDERED: FUROSEMIDE 100 MG/10 ML VIAL IV STA (15:56)
[2017-08-29] MEDS ORDERED: cefTRIAXone 1,000 MG in SODIUM CHLORIDE 0.9% 100 ML IV STA (15:56)
[2017-08-29] MEDS ORDERED: ALBUTEROL NEB SOLN 5 MG/ML 20 ML/BOTTLE RESP TX SCH (16:00)
[2017-08-29 16:08] LABS: Basophils # 0.1 10*3/uL (0.0-0.2); Basophils % 0.5 % (0.0-0.8); Eosinophils # 0.4 10*3/uL (0.0-0.87); Eosinophils % 3.6 % (0.00-10.9); Hematocrit 28.9 VOL% (35.7-47.0); Hemoglobin 9.2 GM/DL (12.0-16.0); Immature Granulocytes % 0.5 %; Immature Granulocytes Absolute 0.06 #; Lymphocytes # 1.4 10*3/uL (1.4-4.0); Lymphocytes % 11.7 % (21.3-54.2); Mean Corpuscular HGB Conc 31.8 GM/DL (32-36); Mean Corpuscular Hemoglobin 29 PG (27-34); Mean Corpuscular Volume 91.2 FL (87-102); Mean Platelet Volume 12.2 FL (9.6-12.0); Neutrophils # 9.1 10*3/uL (1.4-7.4); Neutrophils % 75.7 % (38.7-73.9); Platelet Count 213 T/CUMM (130-400); Red Blood Count 3.17 MC/CUMM (3.8-5.5); Red Cell Distribution Width 14.8 % (9.3-17.3); White Blood Count 12.1 T/CUMM (4-12)
[2017-08-29 16:16] LABS: Apearance,Urine Slightly Hazy (Clear); Bilirubin,Urine Negative (Negative); Blood, Urine Negative (Negative); Glucose,Urine (UA) 50 mg/dL (Negative); Ketones,Urine Negative (Negative); Nitrite,Urine Negative (Negative); Protein,Urine 100 MG/DL; RBC,Urine 1 /HPF (0-4); Squamous Epithelial Cell,Urine Few /HPF (0-10); Urine Color Straw (Yellow); Urine Specific Gravity 1.009 (1.001-1.035); Urine Urobilinogen < 2.0 EU/DL (0.2-1.0); WBC,Urine 1 /HPF (0-6)
[2017-08-29] MEDS ORDERED: ONDANSETRON 4 MG/2 ML VIAL ONE (16:16)
[2017-08-29] MEDS ORDERED: cefTRIAXone 1,000 MG VIAL ONE (16:16)
[2017-08-29] MEDS ORDERED: FUROSEMIDE 100 MG/10 ML VIAL ONE (16:17)
[2017-08-29 16:29] LABS: PT Patient Result 10.7 SECS
[2017-08-29 16:54] LABS: Alanine Aminotransferase 19 U/L (13-56); Albumin 3.1 G/DL (3.4-5.0); Alkaline Phosphatase 113 U/L (45-117); Aspartate Amino Transferase 13 U/L (0-37); Blood Urea Nitrogen 35 MG/DL (7-18); Calcium 8.5 MG/DL (8.5-10.1); Glucose 99 MG/DL (74-106); Osmolality,Calculated 288.3 MOS/KG (273-304); Potassium 4.8 MMOL/L (3.5-5.1); Sodium 141 MMOL/L (136-145); Total Protein 6.5 G/DL (6.4-8.3); Troponin I Only < 0.015 NG/ML (0.00-0.045)
[2017-08-29] MEDS ORDERED: NON-FORMULARY MEDICATION (Albuterol Sulfate [Proair Hfa] 2 PUFF) INH PRN (18:11)
[2017-08-29] MEDS ORDERED: METHOCARBAMOL 750 MG TABLET PO PRN (18:11)
[2017-08-29] MEDS ORDERED: DIPHENOXYLATE/ATROPINE 2.5-0.025 MG TABLET PO PRN (18:11)
[2017-08-29] MEDS ORDERED: ENOXAPARIN 120 MG/0.8 ML SYRINGE SUBCUT ONE (20:32)
[2017-08-29] MEDS: LACTOBACILLUS RHAMNOSUS GG CAPSULE PO SCH (21:27)
[2017-08-29] MEDS: SODIUM BICARBONATE 650 MG TABLET PO SCH (21:28)
[2017-08-29] MEDS: METOPROLOL TARTRATE 25 MG TABLET PO SCH (21:28)
[2017-08-29] MEDS: amLODIPine 10 MG TABLET PO SCH (21:28)
[2017-08-29] MEDS: DICLOFENAC 1% GEL 100 GM TUBE TOP SCH (21:29)
[2017-08-30 05:13] LABS: Basophils # 0.1 10*3/uL (0.0-0.2); Basophils % 0.6 % (0.0-0.8); Eosinophils # 0.4 10*3/uL (0.0-0.87); Eosinophils % 3.8 % (0.00-10.9); Hematocrit 26.5 VOL% (35.7-47.0); Hemoglobin 8.2 GM/DL (12.0-16.0); Immature Granulocytes % 0.5 %; Immature Granulocytes Absolute 0.05 #; Lymphocytes # 1.5 10*3/uL (1.4-4.0); Lymphocytes % 15.2 % (21.3-54.2); Mean Corpuscular HGB Conc 30.9 GM/DL (32-36); Mean Corpuscular Hemoglobin 28 PG (27-34); Mean Corpuscular Volume 91.7 FL (87-102); Mean Platelet Volume 12.4 FL (9.6-12.0); Monocytes % 9.6 % (1.7-12.7); Neutrophils # 6.9 10*3/uL (1.4-7.4); Neutrophils % 70.3 % (38.7-73.9); Platelet Count 177 T/CUMM (130-400); Red Blood Count 2.89 MC/CUMM (3.8-5.5); White Blood Count 9.9 T/CUMM (4-12)
[2017-08-30 05:35] LABS: Calcium 8.1 MG/DL (8.5-10.1); Potassium 4.8 MMOL/L (3.5-5.1)
[2017-08-30] MEDS: LACTOBACILLUS RHAMNOSUS GG CAPSULE PO SCH ×2 (09:17→21:17)
[2017-08-30] MEDS: METOPROLOL TARTRATE 25 MG TABLET PO SCH ×2 (09:18→21:18)
[2017-08-30] MEDS: PANTOPRAZOLE 40 MG TABLET PO SCH (09:18)
[2017-08-30] MEDS: ISOSORBIDE MONONITRATE 60 MG TABLET PO SCH (09:18)
[2017-08-30] MEDS: SODIUM BICARBONATE 650 MG TABLET PO SCH ×3 (09:18→21:17)
[2017-08-30] MEDS: DICLOFENAC 1% GEL 100 GM TUBE TOP SCH ×3 (09:18→21:19)
[2017-08-30] MEDS: amLODIPine 10 MG TABLET PO SCH ×2 (09:18→21:17)
[2017-08-30] MEDS: FUROSEMIDE 40 MG/4 ML VIAL IV SCH ×2 (10:05→19:31)
[2017-08-30] MEDS: ALBUTEROL 2.5 MG/3 ML NEB RESP TX PRN (14:57)
[2017-08-30] MEDS ORDERED: ONDANSETRON 4 MG/2 ML VIAL ONE (17:02)
[2017-08-30] MEDS ORDERED: ONDANSETRON 4 MG/2 ML VIAL IV PRN (17:06)
[2017-08-30] MEDS: ALBUTEROL/IPRATROPIUM 3 ML NEB RESP TX PRN (18:00)
[2017-08-31] MEDS: ALBUTEROL/IPRATROPIUM 3 ML NEB RESP TX PRN ×2 (04:03→07:56)
[2017-08-31 04:39] LABS: Basophils # 0.1 10*3/uL (0.0-0.2); Basophils % 0.5 % (0.0-0.8); Eosinophils # 0.5 10*3/uL (0.0-0.87); Eosinophils % 4.4 % (0.00-10.9); Hematocrit 27.5 VOL% (35.7-47.0); Hemoglobin 8.9 GM/DL (12.0-16.0); Immature Granulocytes % 0.5 %; Immature Granulocytes Absolute 0.05 #; Lymphocytes # 1.4 10*3/uL (1.4-4.0); Lymphocytes % 13.2 % (21.3-54.2); Mean Corpuscular HGB Conc 32.4 GM/DL (32-36); Mean Corpuscular Hemoglobin 29 PG (27-34); Mean Corpuscular Volume 89.6 FL (87-102); Mean Platelet Volume 12.9 FL (9.6-12.0); Monocytes # 1.1 10*3/uL (0.11-0.8); Monocytes % 9.9 % (1.7-12.7); Neutrophils # 7.7 10*3/uL (1.4-7.4); Neutrophils % 71.5 % (38.7-73.9); Platelet Count 194 T/CUMM (130-400); Red Blood Count 3.07 MC/CUMM (3.8-5.5); Red Cell Distribution Width 14.9 % (9.3-17.3); White Blood Count 10.7 T/CUMM (4-12)
[2017-08-31 05:08] LABS: Calcium 8.4 MG/DL (8.5-10.1); Osmolality,Calculated 287.3 MOS/KG (273-304); Potassium 4.8 MMOL/L (3.5-5.1)
[2017-08-31] MEDS: FUROSEMIDE 40 MG/4 ML VIAL IV SCH ×2 (08:57→15:34)
[2017-08-31] MEDS: amLODIPine 10 MG TABLET PO SCH ×2 (09:00→21:11)
[2017-08-31] MEDS: SODIUM BICARBONATE 650 MG TABLET PO SCH ×3 (09:00→21:11)
[2017-08-31] MEDS: LACTOBACILLUS RHAMNOSUS GG CAPSULE PO SCH ×2 (09:00→21:11)
[2017-08-31] MEDS: PANTOPRAZOLE 40 MG TABLET PO SCH (09:00)
[2017-08-31] MEDS: ISOSORBIDE MONONITRATE 60 MG TABLET PO SCH (09:00)
[2017-08-31] MEDS: DICLOFENAC 1% GEL 100 GM TUBE TOP SCH ×3 (09:01→22:01)
[2017-08-31] MEDS: METOPROLOL TARTRATE 25 MG TABLET PO SCH ×2 (09:01→21:11)
[2017-08-31] MEDS: ALBUTEROL/IPRATROPIUM 3 ML NEB RESP TX SCH ×3 (10:45→20:12)
[2017-08-31] MEDS ORDERED: GLUCAGON 1 MG VIAL IM PRN (12:26)
[2017-08-31] MEDS ORDERED: DEXTROSE 50% 25 GM/50 ML VIAL IV PRN (12:26)
[2017-08-31] MEDS: INSULIN REGULAR 100 UNIT/ML SUBCUT SCH (17:36)
[2017-09-01] MEDS: INSULIN REGULAR 100 UNIT/ML SUBCUT SCH ×4 (00:09→19:18)
[2017-09-01] MEDS: ALBUTEROL/IPRATROPIUM 3 ML NEB RESP TX SCH ×7 (00:16→23:11)
[2017-09-01] MEDS: amLODIPine 10 MG TABLET PO SCH ×2 (09:08→22:52)
[2017-09-01] MEDS: FUROSEMIDE 40 MG/4 ML VIAL IV SCH ×2 (09:08→16:05)
[2017-09-01] MEDS: ISOSORBIDE MONONITRATE 60 MG TABLET PO SCH (09:08)
[2017-09-01] MEDS: LACTOBACILLUS RHAMNOSUS GG CAPSULE PO SCH ×2 (09:08→22:58)
[2017-09-01] MEDS: PANTOPRAZOLE 40 MG TABLET PO SCH (09:09)
[2017-09-01] MEDS: METOPROLOL TARTRATE 25 MG TABLET PO SCH ×2 (09:09→22:53)
[2017-09-01] MEDS: DICLOFENAC 1% GEL 100 GM TUBE TOP SCH ×3 (09:09→22:54)
[2017-09-01] MEDS: SODIUM BICARBONATE 650 MG TABLET PO SCH ×3 (09:09→22:52)
[2017-09-01] MEDS: GENTAMICIN 0.1% CREAM 15 GM TUBE TOP SCH ×2 (19:18→23:54)
[2017-09-02] MEDS: INSULIN REGULAR 100 UNIT/ML SUBCUT SCH ×5 (00:48→23:14)
[2017-09-02] MEDS: ALBUTEROL/IPRATROPIUM 3 ML NEB RESP TX SCH ×6 (03:32→19:51)
[2017-09-02 05:15] LABS: Basophils % 0.2 % (0.0-0.8); Eosinophils # 0.3 10*3/uL (0.0-0.87); Eosinophils % 4.2 % (0.00-10.9); Hemoglobin 8.2 GM/DL (12.0-16.0); Immature Granulocytes % 0.4 %; Immature Granulocytes Absolute 0.03 #; Lymphocytes # 1.5 10*3/uL (1.4-4.0); Lymphocytes % 18.9 % (21.3-54.2); Mean Corpuscular HGB Conc 31.5 GM/DL (32-36); Mean Corpuscular Hemoglobin 29 PG (27-34); Mean Corpuscular Volume 91.2 FL (87-102); Mean Platelet Volume 12.6 FL (9.6-12.0); Monocytes # 0.6 10*3/uL (0.11-0.8); Monocytes % 7.7 % (1.7-12.7); Neutrophils # 5.5 10*3/uL (1.4-7.4); Neutrophils % 68.6 % (38.7-73.9); Platelet Count 195 T/CUMM (130-400); Red Blood Count 2.85 MC/CUMM (3.8-5.5); Red Cell Distribution Width 14.6 % (9.3-17.3)
[2017-09-02 05:45] LABS: Calcium 8.4 MG/DL (8.5-10.1); Osmolality,Calculated 283.5 MOS/KG (273-304); Potassium 4.6 MMOL/L (3.5-5.1)
[2017-09-02 05:50] LABS: Calcium 8.3 MG/DL (8.5-10.1); Osmolality,Calculated 283.5 MOS/KG (273-304); Potassium 4.6 MMOL/L (3.5-5.1)
[2017-09-02 05:54] LABS: Risk Ratio 3.87; VLDL CHOLESTEROL 15.2 MG/DL
[2017-09-02] MEDS ORDERED: ceFAZolin 1,000 MG in SYRINGE 1 EACH IV ONE (06:00)
[2017-09-02] MEDS ORDERED: BUPIVACAINE 0.25% 50 ML VIAL ONE (06:36)
[2017-09-02] MEDS ORDERED: HEPARIN 5,000 UNIT/1 ML VIAL ONE (06:36)
[2017-09-02] MEDS ORDERED: LIDOCAINE 1%/EPI INJ 20 ML VIAL ONE (06:42)
[2017-09-02] MEDS: SODIUM CHLORIDE 0.9% 250 ML IV SCH ×2 (07:01→22:02)
[2017-09-02] MEDS ORDERED: MIDAZOLAM 2 MG/2 ML VIAL ONE (07:43)
[2017-09-02] MEDS ORDERED: PROPOFOL 500 MG/50 ML BOTTLE IV ONE (07:43)
[2017-09-02] MEDS ORDERED: fentaNYL 100 MCG/2 ML VIAL ONE (07:43)
[2017-09-02] MEDS: DICLOFENAC 1% GEL 100 GM TUBE TOP SCH ×3 (08:51→22:03)
[2017-09-02] MEDS: LACTOBACILLUS RHAMNOSUS GG CAPSULE PO SCH ×2 (08:51→22:00)
[2017-09-02] MEDS: PANTOPRAZOLE 40 MG TABLET PO SCH (08:51)
[2017-09-02] MEDS: SODIUM BICARBONATE 650 MG TABLET PO SCH ×3 (08:51→22:00)
[2017-09-02] MEDS: METOPROLOL TARTRATE 25 MG TABLET PO SCH ×2 (08:51→22:00)
[2017-09-02] MEDS: FUROSEMIDE 40 MG/4 ML VIAL IV SCH ×2 (08:51→15:46)
[2017-09-02] MEDS: amLODIPine 10 MG TABLET PO SCH ×2 (08:51→22:00)
[2017-09-02] MEDS: ISOSORBIDE MONONITRATE 60 MG TABLET PO SCH (08:51)
[2017-09-02] MEDS ORDERED: VANCOMYCIN INJ 1,000 MG in SODIUM CHLORIDE 0.9% 250 ML IV PRN (09:52)
[2017-09-02] MEDS: GENTAMICIN 0.1% CREAM 15 GM TUBE TOP SCH (11:38)
[2017-09-02] MEDS ORDERED: METOPROLOL TARTRATE 25 MG TABLET PO SCH (11:41)
[2017-09-02 13:38] LABS: Hepatitis A Ab IgM Result Negative (Negative); Hepatitis B Core IgM Quant 0.18 Index; Hepatitis B Core IgM Result Negative (Negative); Hepatitis B Surface Ag Quant 0.33 Index; Hepatitis B Surface Ag Result Negative (Negative); Hepatitis C Virus Ab Quant 0.07 Index; Hepatitis C Virus Ab Result Negative (Negative)
[2017-09-02] MEDS ORDERED: VANCOMYCIN INJ 1,000 MG in SODIUM CHLORIDE 0.9% 250 ML IV ONE (18:00)
[2017-09-02] MEDS: ALBUTEROL 2.5 MG/3 ML NEB RESP TX PRN (21:22)
[2017-09-03] MEDS: ALBUTEROL/IPRATROPIUM 3 ML NEB RESP TX SCH ×7 (00:31→23:50)
[2017-09-03] MEDS: INSULIN REGULAR 100 UNIT/ML SUBCUT SCH ×3 (05:02→17:57)
[2017-09-03 06:16] LABS: Basophils % 0.4 % (0.0-0.8); Eosinophils # 0.6 10*3/uL (0.0-0.87); Eosinophils % 6.3 % (0.00-10.9); Hematocrit 27.4 VOL% (35.7-47.0); Hemoglobin 8.7 GM/DL (12.0-16.0); Immature Granulocytes % 0.4 %; Immature Granulocytes Absolute 0.04 #; Lymphocytes # 1.3 10*3/uL (1.4-4.0); Lymphocytes % 14.6 % (21.3-54.2); Mean Corpuscular HGB Conc 31.8 GM/DL (32-36); Mean Corpuscular Hemoglobin 29 PG (27-34); Mean Corpuscular Volume 91.3 FL (87-102); Mean Platelet Volume 12.3 FL (9.6-12.0); Monocytes # 0.6 10*3/uL (0.11-0.8); Monocytes % 6.6 % (1.7-12.7); Neutrophils # 6.4 10*3/uL (1.4-7.4); Neutrophils % 71.7 % (38.7-73.9); Platelet Count 218 T/CUMM (130-400); Red Cell Distribution Width 14.6 % (9.3-17.3); White Blood Count 8.9 T/CUMM (4-12)
[2017-09-03 06:51] LABS: Calcium 8.5 MG/DL (8.5-10.1); Osmolality,Calculated 280.7 MOS/KG (273-304); Potassium 4.6 MMOL/L (3.5-5.1)
[2017-09-03] MEDS: FUROSEMIDE 40 MG/4 ML VIAL IV SCH ×2 (08:52→17:08)
[2017-09-03] MEDS: LACTOBACILLUS RHAMNOSUS GG CAPSULE PO SCH ×3 (10:49→21:25)
[2017-09-03] MEDS: GENTAMICIN 0.1% CREAM 15 GM TUBE TOP SCH (10:49)
[2017-09-03] MEDS: SODIUM CHLORIDE 0.9% 250 ML IV SCH (10:49)
[2017-09-03] MEDS: DICLOFENAC 1% GEL 100 GM TUBE TOP SCH ×3 (10:50→21:26)
[2017-09-03] MEDS: SODIUM BICARBONATE 650 MG TABLET PO SCH ×3 (10:50→21:25)
[2017-09-03] MEDS: METOPROLOL TARTRATE 25 MG TABLET PO SCH ×3 (12:29→21:25)
[2017-09-03] MEDS ORDERED: VANCOMYCIN INJ 1,000 MG in SODIUM CHLORIDE 0.9% 250 ML IV ONE (14:00)
[2017-09-03] MEDS: ISOSORBIDE MONONITRATE 60 MG TABLET PO SCH (14:33)
[2017-09-03] MEDS: PANTOPRAZOLE 40 MG TABLET PO SCH (14:34)
[2017-09-03] MEDS: amLODIPine 10 MG TABLET PO SCH ×2 (14:34→21:25)
[2017-09-04] MEDS: INSULIN REGULAR 100 UNIT/ML SUBCUT SCH ×4 (00:32→18:16)
[2017-09-04] MEDS: ALBUTEROL/IPRATROPIUM 3 ML NEB RESP TX SCH ×5 (03:15→19:46)
[2017-09-04 05:36] LABS: Basophils % 0.2 % (0.0-0.8); Eosinophils # 0.5 10*3/uL (0.0-0.87); Eosinophils % 6.1 % (0.00-10.9); Hematocrit 27.9 VOL% (35.7-47.0); Immature Granulocytes % 0.2 %; Immature Granulocytes Absolute 0.02 #; Lymphocytes # 1.6 10*3/uL (1.4-4.0); Lymphocytes % 18.3 % (21.3-54.2); Mean Corpuscular HGB Conc 32.3 GM/DL (32-36); Mean Corpuscular Hemoglobin 29 PG (27-34); Mean Corpuscular Volume 88.9 FL (87-102); Mean Platelet Volume 12.6 FL (9.6-12.0); Monocytes # 0.7 10*3/uL (0.11-0.8); Monocytes % 8.1 % (1.7-12.7); Neutrophils # 5.7 10*3/uL (1.4-7.4); Neutrophils % 67.1 % (38.7-73.9); Platelet Count 228 T/CUMM (130-400); Red Blood Count 3.14 MC/CUMM (3.8-5.5); Red Cell Distribution Width 14.5 % (9.3-17.3); White Blood Count 8.5 T/CUMM (4-12)
[2017-09-04 06:13] LABS: Calcium 8.4 MG/DL (8.5-10.1); Osmolality,Calculated 277.5 MOS/KG (273-304); Potassium 4.7 MMOL/L (3.5-5.1)
[2017-09-04 06:15] LABS: Calcium 8.4 MG/DL (8.5-10.1); Osmolality,Calculated 279.4 MOS/KG (273-304); Potassium 4.7 MMOL/L (3.5-5.1)
[2017-09-04] MEDS: SODIUM BICARBONATE 650 MG TABLET PO SCH ×3 (10:12→21:39)
[2017-09-04] MEDS: DICLOFENAC 1% GEL 100 GM TUBE TOP SCH ×3 (10:12→21:40)
[2017-09-04] MEDS ORDERED: VANCOMYCIN INJ 1,000 MG in SODIUM CHLORIDE 0.9% 250 ML IV ONE (14:00)
[2017-09-04] MEDS ORDERED: HEPARIN 10,000 UNIT/10 ML VIAL IV SCH (14:30)
[2017-09-04] MEDS: LACTOBACILLUS RHAMNOSUS GG CAPSULE PO SCH ×2 (14:34→21:40)
[2017-09-04] MEDS: PANTOPRAZOLE 40 MG TABLET PO SCH (14:36)
[2017-09-04] MEDS: GENTAMICIN 0.1% CREAM 15 GM TUBE TOP SCH (15:23)
[2017-09-04] MEDS: amLODIPine 10 MG TABLET PO SCH ×2 (15:23→21:39)
[2017-09-04] MEDS: METOPROLOL TARTRATE 25 MG TABLET PO SCH ×2 (15:23→21:39)
[2017-09-04] MEDS: ISOSORBIDE MONONITRATE 60 MG TABLET PO SCH (15:23)
[2017-09-04] MEDS: FUROSEMIDE 40 MG/4 ML VIAL IV SCH ×2 (16:08)
[2017-09-04] MEDS: ACETAMINOPHEN 325 MG TABLET PO PRN (21:39)
[2017-09-05] MEDS: INSULIN REGULAR 100 UNIT/ML SUBCUT SCH ×3 (00:30→12:19)
[2017-09-05] MEDS: ALBUTEROL/IPRATROPIUM 3 ML NEB RESP TX SCH ×4 (01:38→11:20)
[2017-09-05 05:59] LABS: Basophils % 0.5 % (0.0-0.8); Eosinophils # 0.6 10*3/uL (0.0-0.87); Eosinophils % 7.3 % (0.00-10.9); Hemoglobin 9.7 GM/DL (12.0-16.0); Immature Granulocytes % 0.7 %; Immature Granulocytes Absolute 0.06 #; Lymphocytes % 23.1 % (21.3-54.2); Mean Corpuscular HGB Conc 31.3 GM/DL (32-36); Mean Corpuscular Hemoglobin 28 PG (27-34); Mean Corpuscular Volume 90.9 FL (87-102); Monocytes # 0.7 10*3/uL (0.11-0.8); Monocytes % 8.4 % (1.7-12.7); Neutrophils # 5.3 10*3/uL (1.4-7.4); Platelet Count 226 T/CUMM (130-400); Red Blood Count 3.41 MC/CUMM (3.8-5.5); Red Cell Distribution Width 14.1 % (9.3-17.3); White Blood Count 8.8 T/CUMM (4-12)
[2017-09-05 06:40] LABS: Calcium 8.8 MG/DL (8.5-10.1); Osmolality,Calculated 274.7 MOS/KG (273-304); Potassium 4.3 MMOL/L (3.5-5.1)
[2017-09-05] MEDS: LACTOBACILLUS RHAMNOSUS GG CAPSULE PO SCH (13:51)
[2017-09-05] MEDS: amLODIPine 10 MG TABLET PO SCH (13:51)
[2017-09-05] MEDS: METOPROLOL TARTRATE 25 MG TABLET PO SCH (13:51)
[2017-09-05] MEDS: SODIUM BICARBONATE 650 MG TABLET PO SCH ×2 (13:51→14:09)
[2017-09-05] MEDS: PANTOPRAZOLE 40 MG TABLET PO SCH (13:51)
[2017-09-05] MEDS: FUROSEMIDE 40 MG/4 ML VIAL IV SCH (13:52)
[2017-09-05] MEDS: ISOSORBIDE MONONITRATE 60 MG TABLET PO SCH (13:52)
[2017-09-05] MEDS: GENTAMICIN 0.1% CREAM 15 GM TUBE TOP SCH (14:07)
[2017-09-05] MEDS: DICLOFENAC 1% GEL 100 GM TUBE TOP SCH ×2 (14:07→14:09)
[2017-09-05 14:11] VITALS: BP 142/65
[2017-09-05] MEDS: ACETAMINOPHEN 325 MG TABLET PO PRN (14:50)
== END 2017-09-05 15:47 | disposition home or self-care (01) | DRG 291 ==
LOC: N.ED 14:43 → N.EDINP 16:52 → SUATTDRO 16:52 → N.EDINP 18:24 → N.TELEN 18:28
PROVIDERS: ADMIT Internal Medicine; ATTEND Internal Medicine

== ENCOUNTER 2019-10-01 18:31 | Inpatient (IN) ==
[2019-10-01] MEDS ORDERED: AZITHROMYCIN 250 MG TABLET PO STA (19:56)
[2019-10-01 20:57] LABS: Basophils # 0.1 10*3/uL (0.0-0.2); Basophils % 0.3 % (0.0-0.8); Eosinophils # 0.1 10*3/uL (0.0-0.87); Eosinophils % 0.7 % (0.00-10.9); Hematocrit 38.4 VOL% (35.7-47.0); Immature Granulocytes % 0.9 %; Immature Granulocytes Absolute 0.17 #; Lymphocytes # 1.3 10*3/uL (1.4-4.0); Lymphocytes % 6.8 % (21.3-54.2); Mean Corpuscular HGB Conc 31.3 GM/DL (32-36); Mean Platelet Volume 12.8 FL (9.6-12.0); Monocytes % 9.1 % (1.7-12.7); Neutrophils % 82.2 % (38.7-73.9); Platelet Count 158 T/CUMM (130-400); Red Blood Count 3.84 MC/CUMM (3.8-5.5); Red Cell Distribution Width 15.1 % (9.3-17.3); White Blood Count 19.6 T/CUMM (4-12)
[2019-10-01] MEDS ORDERED: VANCOMYCIN INJ 1,000 MG in SODIUM CHLORIDE 0.9% 250 ML IV STA (21:22)
[2019-10-01 21:33] LABS: INR 1.1; PT Patient Result 11.7 SECS (9.8-11.9)
[2019-10-01 22:06] LABS: Sedimentation Rate-Westergren 87 MM/HR (0-30)
[2019-10-01 23:55] LABS: Alanine Aminotransferase 20 U/L (13-56); Alkaline Phosphatase 74 U/L (45-117); Aspartate Amino Transferase 15 U/L (0-37); Bilirubin,Total 0.74 MG/DL (0.2-1.0); Blood Urea Nitrogen 42 MG/DL (7-18); Calcium 9.3 MG/DL (8.5-10.1); Estimated Glom Filtration Rate 6 ML/MIN; Glucose 123 MG/DL (74-106)
[2019-10-01 23:56] LABS: Amylase 43 U/L (25-115); Ferritin 1752.4 ng/ml (8-252); Osmolality,Calculated 281.1 MOS/KG (273-304)
[2019-10-02] MEDS ORDERED: PROMETHAZINE 25 MG/1 ML VIAL IM PRN (00:43)
[2019-10-02] MEDS ORDERED: guaiFENesin/DM ER 600-30 MG TABLET PO PRN (00:43)
[2019-10-02] MEDS ORDERED: NICOTINE 21 MG/24 HR PATCH TRANSDERM PRN (00:43)
[2019-10-02] MEDS ORDERED: DEXTROSE 50% 25 GM/50 ML VIAL IV PRN ×2 (00:43)
[2019-10-02] MEDS ORDERED: diphenhydrAMINE CAP 25 MG CAPSULE PO PRN (00:43)
[2019-10-02] MEDS ORDERED: hydrALAZINE 20 MG/1 ML VIAL IV PRN (00:43)
[2019-10-02] MEDS ORDERED: GLUCAGON 1 MG VIAL IM PRN (00:43)
[2019-10-02] MEDS ORDERED: ZALEPLON 5 MG CAPSULE PO PRN (00:43)
[2019-10-02] MEDS ORDERED: niCARdipine INJ 25 MG in SODIUM CHLORIDE 0.9% 240 ML IV PRN (00:46)
[2019-10-02] MEDS ORDERED: AZITHROMYCIN INJ 500 MG in SODIUM CHLORIDE 0.9% 250 ML IV SCH (01:00)
[2019-10-02] MEDS ORDERED: VANCOMYCIN INJ 1,000 MG in SODIUM CHLORIDE 0.9% 250 ML IV PRN (01:05)
[2019-10-02] MEDS ORDERED: VANCOMYCIN INJ 1,000 MG in SODIUM CHLORIDE 0.9% 250 ML IV ONE (01:30)
[2019-10-02] MEDS: MORPHINE 4 MG/1 ML VIAL IV PRN (01:38)
[2019-10-02] MEDS ORDERED: niCARdipine 25 MG/10 ML VIAL IV ONE (02:51)
[2019-10-02] MEDS: PIPERACILLIN/TAZOBACTAM 2,250 MG in SODIUM CHLORIDE 0.9% 100 ML IV SCH ×2 (09:00→21:30)
[2019-10-02] MEDS: AZITHROMYCIN 250 MG TABLET PO SCH (09:00)
[2019-10-02] MEDS: PANTOPRAZOLE 40 MG TABLET PO SCH (09:00)
[2019-10-02] MEDS: ACETAMINOPHEN 325 MG TABLET PO PRN ×2 (09:25→21:30)
[2019-10-02 09:53] LABS: Basophils # 0.1 10*3/uL (0.0-0.2); Basophils % 0.2 % (0.0-0.8); Eosinophils # 0.1 10*3/uL (0.0-0.87); Eosinophils % 0.2 % (0.00-10.9); Hematocrit 32.2 VOL% (35.7-47.0); Immature Granulocytes % 0.9 %; Immature Granulocytes Absolute 0.18 #; Lymphocytes # 1.4 10*3/uL (1.4-4.0); Lymphocytes % 6.6 % (21.3-54.2); Mean Corpuscular HGB Conc 31.1 GM/DL (32-36); Mean Corpuscular Volume 101.3 FL (87-102); Mean Platelet Volume 12.1 FL (9.6-12.0); Monocytes % 9.4 % (1.7-12.7); Neutrophils % 82.7 % (38.7-73.9); Platelet Count 151 T/CUMM (130-400); Red Blood Count 3.18 MC/CUMM (3.8-5.5); Red Cell Distribution Width 14.7 % (9.3-17.3); White Blood Count 20.6 T/CUMM (4-12)
[2019-10-02 10:15] LABS: Band Neutrophils 1 % (0-10); Lymphocytes 4 % (20-55); Segmented Neutrophils 88 % (50-85); Total Cells Counted 100
[2019-10-02 10:16] LABS: Hypochromasia Slight; Macrocytosis Slight; Platelet Estimate Adequate
[2019-10-02 10:23] LABS: Albumin 2.4 G/DL (3.4-5.0); Bilirubin,Total 0.6 MG/DL (0.2-1.0); Calcium 7.9 MG/DL (8.5-10.1); Osmolality,Calculated 286.5 MOS/KG (273-304); Total Protein 6.6 G/DL (6.4-8.3)
[2019-10-02] MEDS: INSULIN LISPRO 100 UNIT/ML SUBCUT SCH ×4 (10:41→21:50)
[2019-10-02] MEDS: HYDROXYCHLOROQUINE 200 MG TABLET PO SCH (11:33)
[2019-10-02] MEDS: APIXABAN 2.5 MG TABLET PO SCH (11:33)
[2019-10-02] MEDS: amLODIPine 10 MG TABLET PO SCH ×2 (11:34→21:30)
[2019-10-02] MEDS: METOPROLOL TARTRATE 25 MG TABLET PO SCH (11:34)
[2019-10-02] MEDS: SODIUM BICARBONATE 650 MG TABLET PO SCH (11:34)
[2019-10-02] MEDS: ISOSORBIDE MONONITRATE 60 MG TABLET PO SCH (11:34)
[2019-10-02] MEDS: ZINC SULFATE 220 MG CAPSULE PO SCH (11:35)
[2019-10-02] MEDS ORDERED: NIFEdipine 10 MG CAPSULE PO PRN (11:59)
[2019-10-02] MEDS ORDERED: NIFEdipine 10 MG CAPSULE PO SCH (14:00)
[2019-10-02] MEDS ORDERED: MAGNESIUM CITRATE 300 ML BOTTLE PO PRN (21:57)
[2019-10-03] MEDS: HYDROXYCHLOROQUINE 200 MG TABLET PO SCH ×2 (03:30→20:21)
[2019-10-03 06:20] LABS: Basophils # 0.1 10*3/uL (0.0-0.2); Basophils % 0.3 % (0.0-0.8); Eosinophils # 0.2 10*3/uL (0.0-0.87); Eosinophils % 0.9 % (0.00-10.9); Hematocrit 39.3 VOL% (35.7-47.0); Immature Granulocytes % 0.6 %; Lymphocytes # 1.3 10*3/uL (1.4-4.0); Lymphocytes % 7.2 % (21.3-54.2); Mean Corpuscular HGB Conc 31.6 GM/DL (32-36); Mean Corpuscular Volume 98.5 FL (87-102); Monocytes % 7.3 % (1.7-12.7); Neutrophils % 83.7 % (38.7-73.9); Platelet Count 172 T/CUMM (130-400); Red Cell Distribution Width 14.7 % (9.3-17.3)
[2019-10-03 06:30] LABS: Calcium 9.4 MG/DL (8.5-10.1); Osmolality,Calculated 277.4 MOS/KG (273-304)
[2019-10-03 06:31] LABS: Hemoglobin 12.4 GM/DL (12.0-16.0); Red Blood Count 3.99 MC/CUMM (3.8-5.5)
[2019-10-03] MEDS: INSULIN LISPRO 100 UNIT/ML SUBCUT SCH ×4 (08:31→20:21)
[2019-10-03] MEDS: amLODIPine 10 MG TABLET PO SCH ×2 (09:28→20:21)
[2019-10-03] MEDS: PANTOPRAZOLE 40 MG TABLET PO SCH (09:28)
[2019-10-03] MEDS: SODIUM BICARBONATE 650 MG TABLET PO SCH (09:28)
[2019-10-03] MEDS: ISOSORBIDE MONONITRATE 60 MG TABLET PO SCH (09:28)
[2019-10-03] MEDS: APIXABAN 2.5 MG TABLET PO SCH (09:28)
[2019-10-03] MEDS: PIPERACILLIN/TAZOBACTAM 2,250 MG in SODIUM CHLORIDE 0.9% 100 ML IV SCH ×2 (09:28→20:21)
[2019-10-03] MEDS: METOPROLOL TARTRATE 25 MG TABLET PO SCH (09:28)
[2019-10-03] MEDS: MORPHINE 4 MG/1 ML VIAL IV PRN ×2 (09:29→14:55)
[2019-10-03] MEDS ORDERED: VANCOMYCIN INJ 1,500 MG in SODIUM CHLORIDE 0.9% 500 ML IV ONE (10:00)
[2019-10-03] MEDS: AZITHROMYCIN 250 MG TABLET PO SCH (14:54)
[2019-10-04] MEDS: ACETAMINOPHEN 325 MG TABLET PO PRN (00:53)
[2019-10-04] MEDS: MORPHINE 4 MG/1 ML VIAL IV PRN ×2 (00:53→05:20)
[2019-10-04 04:35] LABS: Basophils # 0.1 10*3/uL (0.0-0.2); Basophils % 0.3 % (0.0-0.8); Eosinophils # 0.4 10*3/uL (0.0-0.87); Hematocrit 32.7 VOL% (35.7-47.0); Hemoglobin 10.2 GM/DL (12.0-16.0); Immature Granulocytes % 1.4 %; Immature Granulocytes Absolute 0.26 #; Lymphocytes # 1.7 10*3/uL (1.4-4.0); Mean Corpuscular HGB Conc 31.2 GM/DL (32-36); Mean Corpuscular Volume 99.4 FL (87-102); Mean Platelet Volume 12.3 FL (9.6-12.0); Monocytes % 8.8 % (1.7-12.7); Neutrophils % 78.5 % (38.7-73.9); Platelet Count 226 T/CUMM (130-400); Red Blood Count 3.29 MC/CUMM (3.8-5.5); Red Cell Distribution Width 14.6 % (9.3-17.3); White Blood Count 19.1 T/CUMM (4-12)
[2019-10-04 04:59] LABS: Calcium 9.5 MG/DL (8.5-10.1); Osmolality,Calculated 282.2 MOS/KG (273-304)
[2019-10-04] MEDS: AZITHROMYCIN 250 MG TABLET PO SCH (08:09)
[2019-10-04] MEDS: METOPROLOL TARTRATE 25 MG TABLET PO SCH (08:09)
[2019-10-04] MEDS: ZINC SULFATE 220 MG CAPSULE PO SCH (08:09)
[2019-10-04] MEDS: ISOSORBIDE MONONITRATE 60 MG TABLET PO SCH (08:09)
[2019-10-04] MEDS: amLODIPine 10 MG TABLET PO SCH ×2 (08:09→20:50)
[2019-10-04] MEDS: APIXABAN 2.5 MG TABLET PO SCH (08:09)
[2019-10-04] MEDS: PANTOPRAZOLE 40 MG TABLET PO SCH (08:10)
[2019-10-04] MEDS: HYDROXYCHLOROQUINE 200 MG TABLET PO SCH ×2 (08:10→20:50)
[2019-10-04] MEDS: SODIUM BICARBONATE 650 MG TABLET PO SCH (08:10)
[2019-10-04] MEDS: PIPERACILLIN/TAZOBACTAM 2,250 MG in SODIUM CHLORIDE 0.9% 100 ML IV SCH (08:10)
[2019-10-04] MEDS: INSULIN LISPRO 100 UNIT/ML SUBCUT SCH ×5 (08:33→20:50)
[2019-10-04] MEDS: SIMETHICONE CHEW 80 MG TABLET PO PRN ×2 (11:38→16:00)
[2019-10-04] MEDS ORDERED: ceFAZolin 1,000 MG in SYRINGE 1 EACH IV ONE (17:05)
[2019-10-05 06:29] LABS: Basophils # 0.1 10*3/uL (0.0-0.2); Basophils % 0.4 % (0.0-0.8); Eosinophils # 0.6 10*3/uL (0.0-0.87); Eosinophils % 3.4 % (0.00-10.9); Hematocrit 31.3 VOL% (35.7-47.0); Hemoglobin 9.9 GM/DL (12.0-16.0); Immature Granulocytes % 1.8 %; Lymphocytes # 1.8 10*3/uL (1.4-4.0); Lymphocytes % 10.9 % (21.3-54.2); Mean Corpuscular HGB Conc 31.6 GM/DL (32-36); Mean Corpuscular Volume 97.8 FL (87-102); Mean Platelet Volume 11.8 FL (9.6-12.0); Monocytes % 9.1 % (1.7-12.7); Neutrophils % 74.4 % (38.7-73.9); Platelet Count 256 T/CUMM (130-400); Red Cell Distribution Width 14.8 % (9.3-17.3); White Blood Count 16.9 T/CUMM (4-12)
[2019-10-05 06:54] LABS: Calcium 9.2 MG/DL (8.5-10.1); Osmolality,Calculated 283.4 MOS/KG (273-304)
[2019-10-05] MEDS: INSULIN LISPRO 100 UNIT/ML SUBCUT SCH ×4 (07:30→21:00)
[2019-10-05] MEDS: AZITHROMYCIN 250 MG TABLET PO SCH (09:00)
[2019-10-05] MEDS: METOPROLOL TARTRATE 25 MG TABLET PO SCH (09:00)
[2019-10-05] MEDS: HYDROXYCHLOROQUINE 200 MG TABLET PO SCH ×2 (09:00→21:00)
[2019-10-05] MEDS: ISOSORBIDE MONONITRATE 60 MG TABLET PO SCH (09:00)
[2019-10-05] MEDS: amLODIPine 10 MG TABLET PO SCH ×2 (09:00→22:00)
[2019-10-05] MEDS: APIXABAN 2.5 MG TABLET PO SCH (09:00)
[2019-10-05] MEDS: SODIUM BICARBONATE 650 MG TABLET PO SCH (09:00)
[2019-10-05] MEDS ORDERED: DEXTROSE 50% 25 GM/50 ML VIAL IV PRN (13:11)
[2019-10-05] MEDS ORDERED: DEXTROSE 10% 250 ML BAG IV PRN (13:27)
[2019-10-05] MEDS ORDERED: ceFAZolin 2,000 MG in PREMIX 1 EACH IV ONE (18:00)
[2019-10-05] MEDS: MORPHINE 4 MG/1 ML VIAL IV PRN (21:02)
[2019-10-06] MEDS: MORPHINE 4 MG/1 ML VIAL IV PRN ×2 (04:30→22:10)
[2019-10-06 05:58] LABS: Basophils # 0.1 10*3/uL (0.0-0.2); Basophils % 0.5 % (0.0-0.8); Eosinophils # 0.6 10*3/uL (0.0-0.87); Eosinophils % 3.9 % (0.00-10.9); Hematocrit 33.1 VOL% (35.7-47.0); Hemoglobin 10.4 GM/DL (12.0-16.0); Immature Granulocytes Absolute 0.46 #; Lymphocytes # 1.7 10*3/uL (1.4-4.0); Lymphocytes % 11.2 % (21.3-54.2); Mean Corpuscular HGB Conc 31.4 GM/DL (32-36); Mean Corpuscular Volume 99.4 FL (87-102); Mean Platelet Volume 10.9 FL (9.6-12.0); Monocytes % 9.7 % (1.7-12.7); Neutrophils % 71.7 % (38.7-73.9); Platelet Count 275 T/CUMM (130-400); Red Blood Count 3.33 MC/CUMM (3.8-5.5); Red Cell Distribution Width 14.6 % (9.3-17.3); White Blood Count 15.5 T/CUMM (4-12)
[2019-10-06 06:20] LABS: Calcium 9.3 MG/DL (8.5-10.1); Osmolality,Calculated 276.7 MOS/KG (273-304)
[2019-10-06] MEDS: METOPROLOL TARTRATE 25 MG TABLET PO SCH (09:44)
[2019-10-06] MEDS: INSULIN LISPRO 100 UNIT/ML SUBCUT SCH ×4 (09:44→23:25)
[2019-10-06] MEDS: ISOSORBIDE MONONITRATE 60 MG TABLET PO SCH (09:44)
[2019-10-06] MEDS: APIXABAN 2.5 MG TABLET PO SCH (09:44)
[2019-10-06] MEDS: amLODIPine 10 MG TABLET PO SCH ×2 (09:44→22:11)
[2019-10-06] MEDS: SODIUM BICARBONATE 650 MG TABLET PO SCH (09:44)
[2019-10-06] MEDS: ceFAZolin 2,000 MG in PREMIX 1 EACH IV SCH (17:02)
[2019-10-07 05:51] LABS: Basophils # 0.1 10*3/uL (0.0-0.2); Basophils % 0.5 % (0.0-0.8); Eosinophils # 0.6 10*3/uL (0.0-0.87); Eosinophils % 3.3 % (0.00-10.9); Hematocrit 34.6 VOL% (35.7-47.0); Hemoglobin 10.8 GM/DL (12.0-16.0); Immature Granulocytes % 3.8 %; Immature Granulocytes Absolute 0.65 #; Lymphocytes # 1.8 10*3/uL (1.4-4.0); Lymphocytes % 10.5 % (21.3-54.2); Mean Corpuscular HGB Conc 31.2 GM/DL (32-36); Mean Corpuscular Volume 99.7 FL (87-102); Mean Platelet Volume 10.9 FL (9.6-12.0); Monocytes % 8.7 % (1.7-12.7); NRBC # 0.02 10*3/uL; Neutrophils % 73.2 % (38.7-73.9); Platelet Count 291 T/CUMM (130-400); Red Blood Count 3.47 MC/CUMM (3.8-5.5); Red Cell Distribution Width 14.3 % (9.3-17.3); White Blood Count 17.1 T/CUMM (4-12)
[2019-10-07 06:12] LABS: Calcium 9.5 MG/DL (8.5-10.1); Osmolality,Calculated 276.8 MOS/KG (273-304)
[2019-10-07 06:46] LABS: Anisocytosis 1+; Band Neutrophils 3 % (0-10); Eosinophils 3 % (0-10); Lymphocytes 12 % (20-55); Macrocytosis 1+; Metamyelocytes 1 %; Platelet Estimate Normal; Segmented Neutrophils 75 % (50-85); Total Cells Counted 100
[2019-10-07] MEDS: INSULIN LISPRO 100 UNIT/ML SUBCUT SCH ×4 (10:08→20:04)
[2019-10-07] MEDS: ISOSORBIDE MONONITRATE 60 MG TABLET PO SCH (16:17)
[2019-10-07] MEDS: METOPROLOL TARTRATE 25 MG TABLET PO SCH (16:17)
[2019-10-07] MEDS: amLODIPine 10 MG TABLET PO SCH ×2 (16:17→20:58)
[2019-10-07] MEDS: SODIUM BICARBONATE 650 MG TABLET PO SCH (16:17)
[2019-10-07] MEDS: APIXABAN 2.5 MG TABLET PO SCH (16:17)
[2019-10-07] MEDS: MORPHINE 4 MG/1 ML VIAL IV PRN (20:57)
[2019-10-07] MEDS ORDERED: ceFAZolin 2,000 MG in PREMIX 1 EACH IV ONE (21:00)
[2019-10-08 06:33] LABS: Basophils # 0.1 10*3/uL (0.0-0.2); Basophils % 0.5 % (0.0-0.8); Eosinophils # 0.6 10*3/uL (0.0-0.87); Eosinophils % 3.9 % (0.00-10.9); Hematocrit 31.4 VOL% (35.7-47.0); Hemoglobin 10.3 GM/DL (12.0-16.0); Immature Granulocytes % 3.6 %; Immature Granulocytes Absolute 0.54 #; Lymphocytes # 1.6 10*3/uL (1.4-4.0); Lymphocytes % 10.7 % (21.3-54.2); Mean Corpuscular HGB Conc 32.8 GM/DL (32-36); Mean Corpuscular Volume 97.5 FL (87-102); Mean Platelet Volume 10.7 FL (9.6-12.0); Monocytes % 7.8 % (1.7-12.7); Neutrophils % 73.5 % (38.7-73.9); Platelet Count 284 T/CUMM (130-400); Red Blood Count 3.22 MC/CUMM (3.8-5.5); Red Cell Distribution Width 14.5 % (9.3-17.3); White Blood Count 15.1 T/CUMM (4-12)
[2019-10-08 06:44] LABS: Calcium 9.2 MG/DL (8.5-10.1); Osmolality,Calculated 270.8 MOS/KG (273-304)
[2019-10-08 06:56] LABS: Eosinophils 5 % (0-10); Hypochromasia 1+; Lymphocytes 13 % (20-55); Macrocytosis Slight; Platelet Estimate Adequate; Segmented Neutrophils 74 % (50-85); Total Cells Counted 100
[2019-10-08] MEDS: ISOSORBIDE MONONITRATE 60 MG TABLET PO SCH (08:14)
[2019-10-08] MEDS: APIXABAN 2.5 MG TABLET PO SCH ×2 (08:14→22:04)
[2019-10-08] MEDS: amLODIPine 10 MG TABLET PO SCH ×2 (08:14→22:04)
[2019-10-08] MEDS: METOPROLOL TARTRATE 25 MG TABLET PO SCH (08:14)
[2019-10-08] MEDS: SODIUM BICARBONATE 650 MG TABLET PO SCH (08:14)
[2019-10-08] MEDS: INSULIN LISPRO 100 UNIT/ML SUBCUT SCH ×4 (15:55→22:04)
[2019-10-08] MEDS ORDERED: ceFAZolin 3,000 MG in SYRINGE 1 EACH IV SCH (18:00)
[2019-10-09] MEDS: SODIUM BICARBONATE 650 MG TABLET PO SCH (09:40)
[2019-10-09] MEDS: METOPROLOL TARTRATE 25 MG TABLET PO SCH (09:41)
[2019-10-09] MEDS: amLODIPine 10 MG TABLET PO SCH ×2 (09:41→20:43)
[2019-10-09] MEDS: APIXABAN 2.5 MG TABLET PO SCH ×2 (09:41→20:43)
[2019-10-09] MEDS: ISOSORBIDE MONONITRATE 60 MG TABLET PO SCH (09:41)
[2019-10-09] MEDS: INSULIN LISPRO 100 UNIT/ML SUBCUT SCH ×4 (09:42→20:43)
[2019-10-09] MEDS ORDERED: LACTULOSE 20 GM/30 ML UDCUP PO PRN (10:24)
[2019-10-09] MEDS ORDERED: TUBERCULIN SKIN TEST 0.1 ML SYRINGE INTRADERM ONE (15:49)
[2019-10-09] MEDS: LACTULOSE 20 GM/30 ML UDCUP PO SCH ×2 (18:29→23:02)
[2019-10-10] MEDS: LACTULOSE 20 GM/30 ML UDCUP PO SCH ×4 (03:23→21:12)
[2019-10-10] MEDS: INSULIN LISPRO 100 UNIT/ML SUBCUT SCH ×4 (09:42→21:13)
[2019-10-10] MEDS: METOPROLOL TARTRATE 25 MG TABLET PO SCH (09:42)
[2019-10-10] MEDS: APIXABAN 2.5 MG TABLET PO SCH ×2 (09:42→21:56)
[2019-10-10] MEDS: amLODIPine 10 MG TABLET PO SCH ×2 (09:42→21:56)
[2019-10-10] MEDS: ISOSORBIDE MONONITRATE 60 MG TABLET PO SCH (09:42)
[2019-10-10] MEDS: SODIUM BICARBONATE 650 MG TABLET PO SCH (09:43)
[2019-10-10] MEDS: POLYETHYLENE GLYCOL POWDER 17 GM PACK PO SCH (11:46)
[2019-10-10] MEDS: metroNIDAZOLE INJ 500 MG in PREMIX 1 EACH IV SCH ×2 (14:29→21:56)
[2019-10-11] MEDS: LACTULOSE 20 GM/30 ML UDCUP PO SCH ×3 (03:13→15:32)
[2019-10-11] MEDS: metroNIDAZOLE INJ 500 MG in PREMIX 1 EACH IV SCH ×4 (03:14→21:47)
[2019-10-11 06:00] LABS: Basophils # 0.1 10*3/uL (0.0-0.2); Basophils % 0.6 % (0.0-0.8); Eosinophils # 0.5 10*3/uL (0.0-0.87); Eosinophils % 3.8 % (0.00-10.9); Hematocrit 33.8 VOL% (35.7-47.0); Hemoglobin 10.4 GM/DL (12.0-16.0); Immature Granulocytes % 3.7 %; Immature Granulocytes Absolute 0.44 #; Lymphocytes # 1.6 10*3/uL (1.4-4.0); Lymphocytes % 13.1 % (21.3-54.2); Mean Corpuscular HGB Conc 30.8 GM/DL (32-36); Mean Corpuscular Volume 100.6 FL (87-102); Mean Platelet Volume 10.4 FL (9.6-12.0); Monocytes % 8.1 % (1.7-12.7); Neutrophils % 70.7 % (38.7-73.9); Platelet Count 281 T/CUMM (130-400); Red Blood Count 3.36 MC/CUMM (3.8-5.5); Red Cell Distribution Width 14.4 % (9.3-17.3)
[2019-10-11 06:16] LABS: Calcium 9.2 MG/DL (8.5-10.1); Osmolality,Calculated 272.8 MOS/KG (273-304)
[2019-10-11] MEDS ORDERED: MIDAZOLAM 2 MG/2 ML VIAL ONE ×5 (07:02→07:46)
[2019-10-11] MEDS ORDERED: HYDROmorphone 2 MG/1 ML VIAL ONE (07:02)
[2019-10-11] MEDS: INSULIN LISPRO 100 UNIT/ML SUBCUT SCH ×3 (09:44→15:41)
[2019-10-11] MEDS: POLYETHYLENE GLYCOL POWDER 17 GM PACK PO SCH (09:45)
[2019-10-11] MEDS: amLODIPine 10 MG TABLET PO SCH ×2 (09:46→21:47)
[2019-10-11] MEDS: APIXABAN 2.5 MG TABLET PO SCH ×2 (09:46→21:47)
[2019-10-11] MEDS: METOPROLOL TARTRATE 25 MG TABLET PO SCH (09:46)
[2019-10-11] MEDS: ISOSORBIDE MONONITRATE 60 MG TABLET PO SCH (09:46)
[2019-10-11] MEDS: SODIUM BICARBONATE 650 MG TABLET PO SCH (09:46)
[2019-10-11] MEDS: ceFAZolin 2,000 MG in PREMIX 1 EACH IV SCH (17:04)
[2019-10-12] MEDS: INSULIN LISPRO 100 UNIT/ML SUBCUT SCH ×4 (01:04→17:54)
[2019-10-12] MEDS: LACTULOSE 20 GM/30 ML UDCUP PO SCH ×4 (01:05→14:24)
[2019-10-12] MEDS: metroNIDAZOLE INJ 500 MG in PREMIX 1 EACH IV SCH ×3 (03:44→14:24)
[2019-10-12 06:51] LABS: Basophils # 0.1 10*3/uL (0.0-0.2); Basophils % 0.5 % (0.0-0.8); Eosinophils # 0.5 10*3/uL (0.0-0.87); Eosinophils % 3.4 % (0.00-10.9); Hematocrit 31.7 VOL% (35.7-47.0); Hemoglobin 10.1 GM/DL (12.0-16.0); Immature Granulocytes % 2.8 %; Immature Granulocytes Absolute 0.42 #; Lymphocytes # 1.7 10*3/uL (1.4-4.0); Lymphocytes % 11.4 % (21.3-54.2); Mean Corpuscular HGB Conc 31.9 GM/DL (32-36); Mean Corpuscular Volume 97.2 FL (87-102); Mean Platelet Volume 10.7 FL (9.6-12.0); Monocytes % 7.3 % (1.7-12.7); Neutrophils % 74.6 % (38.7-73.9); Platelet Count 331 T/CUMM (130-400); Red Blood Count 3.26 MC/CUMM (3.8-5.5); Red Cell Distribution Width 14.2 % (9.3-17.3); White Blood Count 15.2 T/CUMM (4-12)
[2019-10-12 07:10] LABS: Calcium 8.9 MG/DL (8.5-10.1); Osmolality,Calculated 282.5 MOS/KG (273-304)
[2019-10-12] MEDS: SODIUM BICARBONATE 650 MG TABLET PO SCH (09:40)
[2019-10-12] MEDS: METOPROLOL TARTRATE 25 MG TABLET PO SCH (09:40)
[2019-10-12] MEDS: ISOSORBIDE MONONITRATE 60 MG TABLET PO SCH (09:40)
[2019-10-12] MEDS: amLODIPine 10 MG TABLET PO SCH (09:40)
[2019-10-12] MEDS: APIXABAN 2.5 MG TABLET PO SCH (09:40)
[2019-10-12] MEDS: POLYETHYLENE GLYCOL POWDER 17 GM PACK PO SCH (09:41)
[2019-10-12 11:50] VITALS: BP 154/70
== END 2019-10-12 19:30 | disposition home or self-care (01) | DRG 291 ==
LOC: N.ED 18:31 → SUATTDRO 10-02 00:43 → N.EDINP 10-02 00:43 → N.ICU 10-02 01:26 → N.2E 10-02 17:34 → N.3E 10-08 16:34
PROVIDERS: ADMIT Internal Medicine; ATTEND Internal Medicine Geriatric Medicine

== ENCOUNTER 2020-01-01 08:10 | Observation (INO) ==
[2020-01-01 09:06] LABS: Basophils % 0.3 % (0.0-0.8); Eosinophils # 0.4 10*3/uL (0.0-0.87); Eosinophils % 3.3 % (0.00-10.9); Hematocrit 33.4 VOL% (35.7-47.0); Hemoglobin 10.4 GM/DL (12.0-16.0); Immature Granulocytes % 1.2 %; Immature Granulocytes Absolute 0.13 #; Lymphocytes # 1.7 10*3/uL (1.4-4.0); Lymphocytes % 16.2 % (21.3-54.2); Mean Corpuscular HGB Conc 31.1 GM/DL (32-36); Mean Corpuscular Volume 99.1 FL (87-102); Mean Platelet Volume 12.2 FL (9.6-12.0); Monocytes % 5.6 % (1.7-12.7); Neutrophils % 73.4 % (38.7-73.9); Platelet Count 155 T/CUMM (130-400); Red Blood Count 3.37 MC/CUMM (3.8-5.5); Red Cell Distribution Width 14.8 % (9.3-17.3); White Blood Count 10.6 T/CUMM (4-12)
[2020-01-01] MEDS ORDERED: MORPHINE 4 MG/1 ML VIAL IV STA (09:14)
[2020-01-01 09:37] LABS: Albumin 3.3 G/DL (3.4-5.0); Bilirubin,Total 0.5 MG/DL (0.2-1.0); Calcium 9.1 MG/DL (8.5-10.1); Osmolality,Calculated 279.7 MOS/KG (273-304); Total Protein 7.8 G/DL (6.4-8.3)
[2020-01-01] MEDS ORDERED: hydrALAZINE 20 MG/1 ML VIAL IV STA (09:59)
[2020-01-01] MEDS ORDERED: GLUCAGON 1 MG VIAL IM PRN (11:47)
[2020-01-01] MEDS ORDERED: hydrALAZINE 20 MG/1 ML VIAL IV PRN (11:47)
[2020-01-01] MEDS ORDERED: DEXTROSE 50% 25 GM/50 ML VIAL IV PRN (11:47)
[2020-01-01 12:19] LABS: Risk Ratio 3.71; Thyroid Stimulating Hormone 2.66 uIU/ml (0.358-3.74); VLDL CHOLESTEROL 19.4 MG/DL
[2020-01-01] MEDS ORDERED: oxyCODONE IR 5 MG TABLET PO PRN (12:58)
[2020-01-01] MEDS: INSULIN REGULAR 100 UNIT/ML SUBCUT SCH ×2 (16:07→21:23)
[2020-01-01] MEDS: APIXABAN 5 MG TABLET PO SCH (21:23)
[2020-01-01] MEDS: guaiFENesin/DM ER 600-30 MG TABLET PO SCH (21:23)
[2020-01-01] MEDS: ACETAMINOPHEN 325 MG TABLET PO PRN (21:24)
[2020-01-01] MEDS: amLODIPine 10 MG TABLET PO SCH (21:24)
[2020-01-02 06:29] LABS: Basophils # 0.1 10*3/uL (0.0-0.2); Basophils % 0.5 % (0.0-0.8); Eosinophils # 0.5 10*3/uL (0.0-0.87); Eosinophils % 5.2 % (0.00-10.9); Hematocrit 35.1 VOL% (35.7-47.0); Hemoglobin 10.8 GM/DL (12.0-16.0); Immature Granulocytes % 0.8 %; Immature Granulocytes Absolute 0.08 #; Lymphocytes # 1.9 10*3/uL (1.4-4.0); Lymphocytes % 18.9 % (21.3-54.2); Mean Corpuscular HGB Conc 30.8 GM/DL (32-36); Mean Platelet Volume 12.6 FL (9.6-12.0); Monocytes % 5.6 % (1.7-12.7); Platelet Count 148 T/CUMM (130-400); Red Blood Count 3.51 MC/CUMM (3.8-5.5); Red Cell Distribution Width 14.9 % (9.3-17.3); White Blood Count 10.2 T/CUMM (4-12)
[2020-01-02 06:32] LABS: Basophils % 0.4 % (0.0-0.8); Eosinophils # 0.6 10*3/uL (0.0-0.87); Eosinophils % 5.6 % (0.00-10.9); Hematocrit 35.8 VOL% (35.7-47.0); Hemoglobin 10.9 GM/DL (12.0-16.0); Immature Granulocytes % 0.6 %; Immature Granulocytes Absolute 0.06 #; Mean Corpuscular HGB Conc 30.4 GM/DL (32-36); Mean Platelet Volume 12.6 FL (9.6-12.0); Monocytes % 5.7 % (1.7-12.7); Neutrophils % 68.7 % (38.7-73.9); Platelet Count 154 T/CUMM (130-400); Red Blood Count 3.51 MC/CUMM (3.8-5.5); Red Cell Distribution Width 14.8 % (9.3-17.3); White Blood Count 10.4 T/CUMM (4-12)
[2020-01-02 06:33] LABS: Calcium 9.3 MG/DL (8.5-10.1)
[2020-01-02 07:16] LABS: Folate 7.4 NG/ML (5.4-24.0); Vitamin B12 870 PG/ML (211-911)
[2020-01-02 08:23] VITALS: BP 140/69
[2020-01-02 08:39] LABS: Sedimentation Rate-Westergren 87 MM/HR (0-30)
[2020-01-02] MEDS: INSULIN REGULAR 100 UNIT/ML SUBCUT SCH ×2 (08:50→12:10)
[2020-01-02] MEDS ORDERED: ALBUTEROL/IPRATROPIUM 3 ML NEB RESP TX PRN (08:58)
[2020-01-02] MEDS ORDERED: ISOSORBIDE MONONITRATE 60 MG TABLET PO SCH (09:00)
[2020-01-02] MEDS ORDERED: PANTOPRAZOLE 40 MG TABLET PO SCH (09:00)
[2020-01-02] MEDS ORDERED: METOPROLOL TARTRATE 25 MG TABLET PO SCH (09:00)
[2020-01-02] MEDS: APIXABAN 5 MG TABLET PO SCH (09:17)
[2020-01-02] MEDS: amLODIPine 10 MG TABLET PO SCH (09:18)
[2020-01-02] MEDS: guaiFENesin/DM ER 600-30 MG TABLET PO SCH (09:18)
[2020-01-02] MEDS: ACETAMINOPHEN 325 MG TABLET PO PRN (11:05)
[2020-01-03 10:15] LABS: Hemoglobin A1 (Alkaline) 98.3 % (96.5-98.5); Hemoglobin A2 (Alkaline) 1.7 % (1.5-3.5)
== END 2020-01-02 12:26 | disposition home or self-care (01) ==
LOC: EDUNIT# → EDBD → N.EDINP 08:10 → N.ED 08:10 → N.EDINP 13:14 → N.TELES 13:36
PROVIDERS: ADMIT Hospitalist; ATTEND Hospitalist